=== PATIENT | female | born 1935 | race Caucasian/White ===

== ENCOUNTER 2016-09-28 13:25 | Inpatient (IN) | payer MEDICARE ==
[~2016-09-28] VITALS: Ht 151.1 cm; Wt 72.4 kg
[~2016-09-28 13:25] MED LIST: CARV12.52 PO; FA-8800C2 PO; FURO20 PO; HYDR-3533 PO; KLOR20TA6 PO; WARF2.5T40 PO
[2016-09-28 13:28] VITALS: BP 139/65; PULSE 119; RESP 18; TEMP 98; O2SAT 97
[2016-09-28] MEDS ORDERED: SODIUM CHLORIDE 0.9% FLUSH 5 ML FLUSH IVF PRN (13:45)
--- NOTE | 2016-09-28 13:53 | PD ---
HPI Chief Complaint: Cardiac Complaint Time Seen by Provider: 13:50 Travel History International Travel<30 days: No Contact w/Intl Traveler<30days: No Traveled to known affect area: No History of Present Illness HPI Patient comes in for evaluation of her A. fib after being seen in the urgent care for UTI symptoms. Patient states she went to the urgent care for dysuria that has been ongoing for approximately a week. Patient's been using over-the- counter UTI medications with minimal relief of her symptoms. Patient states she did have a fever 2 days ago but has been fighting a cold as well, which she has been taking antihistamines for symptomatic relief. Patient denies any nausea, vomiting, chest pain, shortness of breath, abdominal pain, headache, dizziness, numbness or tingling anywhere. While patient was at the urgent care she was noted to be in A. fib with RVR and sent to the emergency room for further treatment and evaluation. Patient states she takes her cardiac medication as directed and sees Dr. Durant. Patient reports she always has palpitations. PFSH Past Medical History Hx Anticoagulant Therapy: Yes Arthritis: Yes (GOUT) Asthma: Yes Atrial Fibrillation: Yes Autoimmune Disease: No Blood Disorders: Yes (THALASEMIA) Heart Rhythm Problems: Yes (ADMITTED WITH AFIB) Cancer: No Cardiovascular Problems: Yes (AFIB, CAD) High Cholesterol: No Chest Pain: No Congestive Heart Failure: Yes COPD: No Diabetes: Yes Diminished Hearing: Yes (HEARING AID) Diverticulitis: Yes Endocrine: Yes Gastrointestinal Disorders: No GERD: No Glaucoma: No Genitourinary: Yes Hepatitis: No Hiatal Hernia: Yes Hypertension: Yes Immune Disorder: No Implanted Vascular Access Dvce: No Kidney Stones: No Musculoskeletal: Yes Neurologic: Yes Psychiatric: No Reproductive: No Respiratory: Yes Integumentary: No Immunizations Current: Yes Renal Failure: No Sickle Cell Disease: No Sleep Apnea: No Thyroid Disease: Yes (HYPO) Menopausal: Yes : 7 Para: 4 Miscarriage: 3 Tubal Ligation: Yes Past Surgical History Abdominal Surgery: Yes (MAGUI) Appendectomy: No Cardiac Surgery: No Cholecystectomy: Yes Ear Surgery: No Endocrine Surgery: No Eye Surgery: Yes (IMPLANT LEFT EYE) Gynecologic Surgery: Yes (TUBAL; HYSTERECTOMY) Hysterectomy: Yes (PARTIAL) Neurologic Surgery: No Oral Surgery: Yes (TONSILLECTOMY) Pacemaker: Yes (IMPLANTED 2013) Thoracic Surgery: No Tonsillectomy: Yes Other Surgery: Yes Social History Alcohol Use: No (PT DENIES) Tobacco Use: No Substance Use: No (PT DENIES) Allergies-Medications (Allergen,Severity, Reaction): Coded Allergies: Tetanus Toxoid (Verified Allergy, Severe, 03/25/16) Green Dyes - Various (Verified Allergy, Intermediate, RASH, 03/25/16) Iodinated Contrast Media (Verified Allergy, Intermediate, Hives, 03/25/16) Uncoded Allergies: COAST SOAP (Allergy, Intermediate, RASH, 02/07/10) Reported Meds & Prescriptions Reported Meds & Active Scripts Active Reported Metformin (Metformin HCl) 500 Mg Tab 500 Mg PO DAILY With a meal Review of Systems Except as stated in HPI: all other systems reviewed are Neg Physical Exam Narrative GENERAL: Well-developed, overly nourished, in no acute distress, and non-ill appearing. SKIN: Warm and dry. HEAD: Atraumatic. Normocephalic. EYES: Pupils equal and round. EOMI. No scleral icterus. No injection or drainage. ENT: No nasal bleeding or discharge. Mucous membranes pink and moist. NECK: Trachea midline. Supple. No nuclear rigidity. CARDIOVASCULAR: Irregular rate and rhythm. Murmur appreciated. RESPIRATORY: No accessory muscle use. No respiratory distress. Clear to auscultation. Breath sounds equal bilaterally. GASTROINTESTINAL: Abdomen soft, minimal tenderness suprapubic, nondistended. Hepatic and splenic margins not palpable. Normal bowel sounds 4. No pulsatile mass. MUSCULOSKELETAL: No obvious deformities. No clubbing. No cyanosis. No edema. Full range of motion. NEUROLOGICAL: Awake and alert. No obvious cranial nerve deficits. Motor grossly within normal limits. Normal speech. PSYCHIATRIC: Appropriate mood and affect; insight and judgment normal. Data Data Last Documented VS Vital Signs Date Time Temp Pulse Resp B/P Pulse Ox O2 Delivery O2 Flow Rate FiO2 09/28/16 14:23 16 97 09/28/16 14:23 100 Room Air 09/28/16 13:28 98.0 139/65 Orders Electrocardiogram (09/28/16 13:43) Basic Metabolic Panel (Bmp) (09/28/16 13:42) Complete Blood Count With Diff (09/28/16 13:42) Prothrombin Time / Inr (Pt) (09/28/16 13:42) Act Partial Throm Time (Ptt) (09/28/16 13:42) Ecg Monitoring (09/28/16 13:42) Iv Access Insert/Monitor (09/28/16 13:42) Oximetry (09/28/16 13:42) Sodium Chloride 0.9% Flush (Ns Flush) (09/28/16 13:45) Urinalysis - C+S If Indicated (09/28/16 13:42) Metoprolol Tartrate Inj (Lopressor Inj) (09/28/16 14:15) Diltiazem Inj (Cardizem Inj) (09/28/16 14:30) Urine Culture (09/28/16 15:05) Ceftriaxone Inj (Rocephin Inj) (09/28/16 16:00) Admit Order (Ed Use Only) (09/28/16 16:02) Labs Laboratory Tests Test 09/28/16 09/28/16 13:55 15:05 White Blood Count 9.7 TH/MM3 Red Blood Count 5.60 MIL/MM3 Hemoglobin 11.2 GM/DL Hematocrit 35.2 % Mean Corpuscular Volume 62.8 FL Mean Corpuscular Hemoglobin 20.0 PG Mean Corpuscular Hemoglobin 31.8 % Concent Red Cell Distribution Width 16.5 % Platelet Count 285 TH/MM3 Mean Platelet Volume 8.8 FL Neutrophils (%) (Auto) 65.5 % Lymphocytes (%) (Auto) 17.9 % Monocytes (%) (Auto) 10.6 % Eosinophils (%) (Auto) 5.2 % Basophils (%) (Auto) 0.8 % Neutrophils # (Auto) 6.4 TH/MM3 Lymphocytes # (Auto) 1.7 TH/MM3 Monocytes # (Auto) 1.0 TH/MM3 Eosinophils # (Auto) 0.5 TH/MM3 Basophils # (Auto) 0.1 TH/MM3 CBC Comment AUTO DIFF Differential Comment AUTO DIFF CONFIRMED Prothrombin Time 16.4 SEC Prothromb Time International 1.5 RATIO Ratio Activated Partial 30.8 SEC Thromboplast Time Sodium Level 136 MEQ/L Potassium Level 5.4 MEQ/L Chloride Level 104 MEQ/L Carbon Dioxide Level 22.9 MEQ/L Anion Gap 9 MEQ/L Blood Urea Nitrogen 27 MG/DL Creatinine 1.35 MG/DL Estimat Glomerular Filtration 38 ML/MIN Rate Random Glucose 112 MG/DL Calcium Level 8.6 MG/DL Urine Color YELLOW Urine Turbidity CLOUDY Urine pH 5.5 Urine Specific [place] 1.015 Urine Protein TRACE mg/dL Urine Glucose (UA) NEG mg/dL Urine Ketones NEG mg/dL Urine Occult Blood SMALL Urine Nitrite NEG Urine Bilirubin NEG Urine Urobilinogen LESS THAN 2.0 MG/DL Urine Leukocyte Esterase LARGE Urine RBC 1 /hpf Urine WBC /hpf Urine WBC Clumps MANY Urine Squamous Epithelial 2 /hpf Cells Urine Bacteria MOD /hpf Urine Mucus FEW /lpf Microscopic Urinalysis Comment CULTURE INDICATED MDM Medical Decision Making Medical Screen Exam Complete: Yes Emergency Medical Condition: Yes Interpretation(s) EKG reviewed by Dr. Phelps, shows irregular rhythm with ventricular rate of 126. No STEMI. Differential Diagnosis A. fib with RVR, electrolyte abnormality, UTI, subtherapeutic INR, supratherapeutic INR, other Narrative Course Patient was seen and examined. Initial laboratory, EKG, and radiological studies were ordered. Discussed patient with Dr. Phelps, solitary patient are negative patient himself Cardizem IV and to discuss patient with her scuba diving teacher Dr. Durant pending laboratory results. Discussed all findings and plan care of patient is agreeable for admission. All questions were answered. Physician Communication Physician Communication [address] Durant who recommends having the patient brought admitted to the hospital for monitoring of her A. fib and possible medication adjustment. 1603 discussed patient with medical residents, who are agreeable to admit the patient for Dr. Pineda. Diagnosis Primary Impression: Atrial fibrillation with RVR Additional Impression: UTI (urinary tract infection) Qualified Code: N39.0 - Urinary tract infection without hematuria, site unspecified Condition: Stable Sukhwinder Villegas Sep 28, 2016 13:53
[2016-09-28 14:11] LABS: AUTOMATED NEUTROPHIL # 6.4 TH/MM3 (1.8-7.7); BASOPHIL # 0.1 TH/MM3 (0-0.2); BASOPHIL % 0.8 % (0.0-2.0); EOSINOPHIL # 0.5 TH/MM3 (0-0.4); EOSINOPHIL % 5.2 % (0.0-4.0); HEMATOCRIT 35.2 % (35.0-46.0); LYMPH % 17.9 % (9.0-44.0); LYMPHOCYTE # 1.7 TH/MM3 (1.0-4.8); MEAN CELL VOLUME 62.8 FL (80.0-100.0); MEAN CORPUSCULAR HGB CONC 31.8 % (32.0-36.0); MONO % 10.6 % (0.0-8.0); NEUT % 65.5 % (16.0-70.0); PLATELET COUNT 285 TH/MM3 (150-450); RED CELL DISTRIBUTION WIDTH 16.5 % (11.6-17.2); WHITE BLOOD COUNT 9.7 TH/MM3 (4.0-11.0)
[2016-09-28 14:13] LABS: HEMO FLAGS AUTO DIFF
[2016-09-28] MEDS ORDERED: METOPROLOL TARTRATE 5 MG/5 ML VIAL IV PUSH ONE (14:15)
[2016-09-28 14:23] VITALS: RESP 16; O2SAT 97
[2016-09-28] MEDS ORDERED: DILTIAZEM HCL 25 MG/5 ML VIAL IV ONE (14:30)
[2016-09-28 14:36] LABS: BICARBONATE 22.9 MEQ/L (21.0-32.0); POTASSIUM 5.4 MEQ/L (3.5-5.1)
[2016-09-28 14:43] LABS: SCAN/DIFF AUTO DIFF CONFIRMED
[2016-09-28 15:31] LABS: BACTERIA, URINE MOD /hpf; BLOOD, URINE SMALL (NEG); COMMENT (UR) CULTURE INDICATED; CULTURE IF INDICATED CULTURE INDICATED; GLUCOSE,URINE NEG (NEG); KETONE, URINE NEG (NEG); MUCUS URINE FEW /lpf (OCC); NITRITE,URINE NEG (NEG); PH, URINE 5.5 (5.0-8.5); SQUAMOUS EPITHELIAL CELL URINE 2 /hpf (0-5); URINE COLOR YELLOW (YELLW/STRAW)
[2016-09-28 15:39] LABS: APTT (PATIENT) 30.8 SEC (24.3-30.1); PROTHROMBIN TIME - PATIENT 16.4 SEC (9.8-11.6)
[2016-09-28 15:40] LABS: INTERNATIONAL NORMALIZED RATIO 1.5 RATIO
[2016-09-28] MEDS ORDERED: METF500T PO (15:57)
[2016-09-28] MEDS ORDERED: cefTRIAXone INJ 1,000 MG in SODIUM CHLORIDE 0.9% INJ 100 ML IV ONE (16:00)
[2016-09-28] MEDS ORDERED: SACU1TAB PO (16:06)
[2016-09-28] MEDS ORDERED: FURO1TAB60 PO (16:06)
[2016-09-28] MEDS ORDERED: FOLI800T PO (16:06)
[2016-09-28] MEDS ORDERED: COUM2.5T PO ×2 (16:06)
[2016-09-28] MEDS ORDERED: POTA-163 PO (16:06)
[2016-09-28] MEDS ORDERED: HYDR-3533 PO (16:06)
[2016-09-28] MEDS ORDERED: AFRI0.055 EACH NARE (16:06)
[2016-09-28] MEDS ORDERED: ADVI200C5 PO (16:06)
[2016-09-28] MEDS ORDERED: CARV12.5 PO (16:06)
[2016-09-28] MEDS ORDERED: MEIJ25CA PO (16:06)
--- NOTE | 2016-09-28 16:22 | HHI.HP ---
HPI Service Family Medicine Primary Care Physician Vishal Herman, DO Admission Diagnosis A. fib with RVR, UTI Diagnoses: International Travel<30 Days: No Contact w/Intl Traveler<30days: No Known Affected Area: No History of Present Illness 81 year old female with h/o nonischemic cardiomyopathy last ECHO here 11/24/15 with EF of 25%, a-fib with pacemaker implanted, HTN, DM presented to the ED after visiting an urgent care center earlier today due to symptoms of a UTI. She states she was found to have an elevated heart rate and after discussion with her container packer operator she was advised to present to the ED. She states she had been having dysuria that prompted her to visit the urgent care center but otherwise she is asymptomatic. She denies chest pain or palpitations. Denies headaches, visual changes, shortness of breath. Review of Systems Constitutional: DENIES: Fever, Chills Eyes: DENIES: Blurred vision, Diplopia Respiratory: DENIES: Cough, Shortness of breath Cardiovascular: DENIES: Chest pain, Palpitations Gastrointestinal: DENIES: Diarrhea, Nausea, Vomiting Genitourinary: COMPLAINS OF: Dysuria Past Family Social History Past Medical History Nonischemic cardiomyopathy with EF of 25-30% A-fib with pacemaker implanted HTN DM Asthma Moderate MVR Past Surgical History Cholecystectomy Implant insertion left eye Tubal ligation Hysterectomy Pacemaker insertion 2013 Tonsillectomy Allergies: Coded Allergies: Tetanus Toxoid (Verified Allergy, Severe, 03/25/16) Green Dyes - Various (Verified Allergy, Intermediate, RASH, 03/25/16) Iodinated Contrast Media (Verified Allergy, Intermediate, Hives, 03/25/16) Uncoded Allergies: COAST SOAP (Allergy, Intermediate, RASH, 02/07/10) Family History Reviewed, noncontributory. Social History No alcohol, no tobacco abuse, no illicit drug use. Physical Exam Vital Signs Vital Signs Date Time Temp Pulse Resp B/P Pulse Ox O2 Delivery O2 Flow Rate FiO2 09/28/16 14:23 16 97 09/28/16 14:23 100 16 96 Room Air 09/28/16 13:28 98.0 119 18 139/65 97 Room Air Physical Exam GENERAL: NAD, lying comfortably in bed NEURO: AOx3. Normal speech. manager of enterprise grossly intact. MAEW. SKIN: Warm and dry. No rashes or erythema. HEAD: Normocephalic. Atraumatic. EYES: PERRL. EOMI. No scleral icterus. No injection or drainage. ENT: No nasal drainage. Moist mucous membranes. No oral ulcers or lesions. NECK: Supple. No JVD. CARDIOVASCULAR: Regular rate and rhythm without murmurs, rubs, or gallops. Peripheral pulses 2+. Capillary refill < 2 seconds. RESPIRATORY: Breath sounds clear to auscultation and equal bilaterally, without wheezes, rales, or rhonchi. No accessory muscle use. GASTROINTESTINAL: Abdomen soft, nontender, nondistended, normal BS. No organomegaly or masses. No rebound tenderness. No guarding. MUSCULOSKELETAL: No edema, cyanosis, or clubbing. Normal range of motion. BACK: Nontender without obvious deformity. Laboratory Laboratory Tests Test 09/28/16 09/28/16 13:55 15:05 White Blood Count 9.7 Red Blood Count 5.60 Hemoglobin 11.2 Hematocrit 35.2 Mean Corpuscular Volume 62.8 Mean Corpuscular Hemoglobin 20.0 Mean Corpuscular Hemoglobin 31.8 Concent Red Cell Distribution Width 16.5 Platelet Count 285 Mean Platelet Volume 8.8 Neutrophils (%) (Auto) 65.5 Lymphocytes (%) (Auto) 17.9 Monocytes (%) (Auto) 10.6 Eosinophils (%) (Auto) 5.2 Basophils (%) (Auto) 0.8 Neutrophils # (Auto) 6.4 Lymphocytes # (Auto) 1.7 Monocytes # (Auto) 1.0 Eosinophils # (Auto) 0.5 Basophils # (Auto) 0.1 CBC Comment AUTO DIFF Differential Comment AUTO DIFF CONFIRMED Prothrombin Time 16.4 Prothromb Time International 1.5 Ratio Activated Partial 30.8 Thromboplast Time Sodium Level 136 Potassium Level 5.4 Chloride Level 104 Carbon Dioxide Level 22.9 Anion Gap 9 Blood Urea Nitrogen 27 Creatinine 1.35 Estimat Glomerular Filtration 38 Rate Random Glucose 112 Calcium Level 8.6 Urine Color YELLOW Urine Turbidity CLOUDY Urine pH 5.5 Urine Specific [place] 1.015 Urine Protein TRACE Urine Glucose (UA) NEG Urine Ketones NEG Urine Occult Blood SMALL Urine Nitrite NEG Urine Bilirubin NEG Urine Urobilinogen LESS THAN 2.0 Urine Leukocyte Esterase LARGE Urine RBC 1 Urine WBC Urine WBC Clumps MANY Urine Squamous Epithelial 2 Cells Urine Bacteria MOD Urine Mucus FEW Microscopic Urinalysis Comment CULTURE INDICATED Date/Time Procedure Status Source Growth 09/28/16 15:05 Urine Culture Received Urine Clean Catch Pending Result Diagram: 09/28/16 1355 09/28/16 1355 Assessment and Plan Assessment and Plan 81 year old female with h/o nonischemic cardiomyopathy, a-fib with pacemaker implanted, HTN, DM sent to the ED today due to tachycardia. She will be admitted and managed for the following: Code Status Full code Discussed Condition With Dr. Still wdw Dr. Pineda Problem List: (1) Atrial fibrillation with RVR Status: Acute Plan: Received Cardizem 10 mg IV in ED. Now better rate controlled EKG prior to Cardizem showed irregular rhythm with rate of 126 bpm Cardiology consulted. Patient follows with Dr. Durant - Coreg increased to 12.5 mg po q8h - Subtherapeutic INR on admission, 1.5 - Started Lovenox daily for anticoagulation - Will be reevaluated for an ICD when more medically stable - Warfarin 2.5 mg S////; 5 mg / - Continue Lasix 40 mg po daily - Continuous telemetry (2) UTI (urinary tract infection) Status: Acute Plan: Symptoms c/w UTI UA: neg nitrite, large LE, many WBC clumps Urine culture pending Rocephin 1 gm IV given in ED, will continue with 1 gm IV q24h (3) Type 2 diabetes mellitus Status: Acute Plan: Accuchecks ACHS Continue Metformin 500 mg po daily Low-dose ISS (4) Hypertension Status: Acute Plan: Continue Entresto 1 tab po bid Lasix 40 mg po daily Coreg increased to 12.5 mg po q8h Monitor vitals q4h (5) Nutrition, metabolism, and development symptoms Status: Acute Plan: Fluids: None Electrolytes: K+ 5.4 hemolysis noted, continue to monitor Nutrition: heart healthy DVT PPX: Lovenox and Coumadin Physician Certification 2 Midnight Certification Type: Admission for Inpatient Services Order for Inpatient Services The services are ordered in accordance with Medicare regulations or non- Medicare payer requirements, as applicable. In the case of services not specified as inpatient-only, they are appropriately provided as inpatient services in accordance with the 2-midnight benchmark. Estimated LOS (days): 2 days is the estimated time the patient will need to remain in the hospital, assuming treatment plan goals are met and no additional complications. Post-Hospital Plan: Home Problem Qualifiers (1) UTI (urinary tract infection): Qualified Code: N39.0 - Urinary tract infection without hematuria, site unspecified Everardo Ashford MD R1 Sep 28, 2016 16:22
[2016-09-28] MEDS ORDERED: SODIUM CHLOR 0.9% 1000 ML INJ 1,000 ML IV SCH (17:15)
--- NOTE | 2016-09-28 17:27 | MB ---
cc: RAYMON CRUZ MD DATE OF CONSULTATION 09/28/16 REASON FOR CONSULTATION Atrial fibrillation. HISTORY OF PRESENT ILLNESS Ms. Cinthya Felzi is an 81 year old patient of mine who does have a history of a nonischemic cardiomyopathy, atrial fibrillation and permanent pacemaker implantation. The patient reports that she was at an Urgent Care Center today and found to have an elevated heart rate and requested to go to the emergency room which she did. There she was found to be in atrial fibrillation with RVR. She received some IV Cardizem with improvement in her heart rate. PAST MEDICAL HISTORY 1. Cardiomyopathy with an ejection fraction of 25-30%, moderate to severe mitral regurgitation, 2. Hypertension, 3. Diabetes 4. Asthma. PAST SURGICAL HISTORY 1. Cholecystectomy, 2. Tubal ligation, 3. Hysterectomy and 4. Tonsillectomy. ALLERGIES GREEN DYE CONTRAST FAMILY HISTORY Noncontributory MEDICATIONS Outpatient medications include 1. Coreg 12.5 mg b.i.d. 2. Entresto 24/26 b.i.d. 3. Coumadin as directed 4. Metformin 5. Lasix 40 mg a day 6. Potassium 20 mEq a day 7. Lortab 8. Afrin 9. Folic acid. SOCIAL HISTORY The patient does not drink or smoke. PHYSICAL EXAMINATION VITAL SIGNS: Heart rate 100, respiratory rate 16, blood pressure 139/65. GENERAL: She is a well-appearing elderly female who is in no apparent distress. NECK: Free from JVD. LUNGS: Bilaterally clear to auscultation. CARDIOVASCULAR: She has an irregularly irregular rhythm, no rubs or gallops were appreciated. ABDOMEN: Soft. EXTREMITIES: Free from edema. CARDIOLOGY STUDIES Telemetry does show episodes of atrial fibrillation with rapid ventricular response. LABORATORY DATA Significant for an INR of 1.5. Her creatinine is 1.35. Her hemoglobin is 11.2. IMPRESSION 1. Atrial fibrillation - the patient does have a history of the same. She is subtherapeutic on her INR. She notes that she has been compliant with her medications. I will request daily Lovenox for the anticoagulation. Regarding the RVR, I am going to increase her Coreg to 12.5 q. 8 as I do not think her blood pressure which has been historically low will be able to tolerate the full 25 b.i.d. 2. Cardiomyopathy - the patient and I have recently changed her from lisinopril to Entresto and area going to reevaluate her when she is stable (recovered from her UTI) for an ICD. 3. UTI - this will be managed by the primary team. She does appear borderline dehydrated. We will have to proceed carefully with hydration given her history of cardiomyopathy. Mauricio Carrera/ /4:39 PM /5:16 PM
[2016-09-28] MEDS ORDERED: DEXTROSE 50% IN WATER 50 ML VIAL(D50) IV PUSH PRN (17:30)
[2016-09-28] MEDS ORDERED: GLUCAGON 1 MG/ML VIAL OTHER PRN (17:30)
[2016-09-28] MEDS: ENOXAPARIN SODIUM 60 MG/0.6 ML SYRINGE SQ SCH (18:00)
[2016-09-28] MEDS: WARFARIN SOD 2.5 MG TAB PO SCH (18:00)
[2016-09-28] MEDS ORDERED: SODIUM CHLOR 0.9% 250 ML INJ 250 ML IV ONE (18:00)
[2016-09-28 19:04] VITALS: BP 137/88; PULSE 70; RESP 18; O2SAT 96
--- NOTE | 2016-09-28 19:23 | EKG ---
Date Performed: 09/28/2016 Time Performed: 13:46:31 PTAGE: 81 years EKG: UNCERTAIN IRREGULAR RHYTHM ELECTRONIC VENTRICULAR PACEMAKER -- CONTOUR ANALYSIS BASED ON IN TRINSIC RHYTHM INTRAVENTRICULAR CONDUCTION DELAY ABNORMAL ECG NO SIGNIFICANT CHANGE FROM PRIOR ELECTR OCARDIOGRAM. PREVIOUS TRACING : 11/24/2015 07.54 DOCTOR: Tanvir Boyce Interpretating Date/Time 09/28/2016 19:21:35
[2016-09-28 20:00] VITALS: BP 111/65; PULSE 90; RESP 16; TEMP 97.6; O2SAT 97
[2016-09-28] MEDS: SACUBITRIL/VALSARTAN 24 MG-26 MG TAB PO SCH ×2 (21:00→23:29)
[2016-09-28] MEDS: INSULIN ASPART SUPPLEMENTAL SCALE SQ SCH (21:00)
[2016-09-28] MEDS ORDERED: ACETAMINOPHEN 325 MG TAB PO PRN (23:00)
[2016-09-28] MEDS: CARVEDILOL 12.5 MG TAB PO SCH (23:28)
[2016-09-28] MEDS: FLUTICASONE PROPIONATE 50 MCG/ACT 16 GM NASAL SPRAY NASAL SCH (23:34)
[2016-09-29] VITALS (8 sets, daily range): BP systolic 100–128; BP diastolic 56–72; PULSE 63–88; RESP 16–20; TEMP 97.1–97.8; O2SAT 96–98
[2016-09-29] MEDS: CARVEDILOL 12.5 MG TAB PO SCH ×3 (06:00→20:59)
[2016-09-29] MEDS: INSULIN ASPART SUPPLEMENTAL SCALE SQ SCH ×4 (06:15→20:54)
--- NOTE | 2016-09-29 07:20 | PD.CARD.PN ---
Subjective Subjective Remarks Pt without complaints, wants to go back on lasix Objective Medications Current Medications Medications (Trade) Dose Ordered Sig/Scarlett Route Start Time Stop Time Status Last Admin (NS Flush) 2 ml UNSCH PRN IVF 09/28/16 13:45 (Coreg) 12.5 mg Q8HR PO 09/28/16 22:00 09/28/16 23:28 Enoxaparin Sodium 50 mg 50 mg Q24H SQ 09/28/16 18:00 09/28/16 18:00 (Rocephin Inj/NS Inj) 100 ml @ 200 mls/hr Q24H IV 09/29/16 09:00 (Lasix) 40 mg DAILY PO 09/29/16 09:00 (Glucophage) 500 mg DAILY PO 09/29/16 09:00 (Entresto 24-26 Mg) 1 tab BID PO 09/28/16 21:00 (Coumadin) 2.5 mg SuTuWeFrSa@1600 PO 09/28/16 18:00 09/28/16 18:00 (Coumadin) 5 mg MoTh@1600 PO 09/30/16 16:00 (D50w (Vial) Inj) 25 ml UNSCH PRN IV PUSH 09/28/16 17:30 (Glucagon Inj) 1 mg UNSCH PRN OTHER 09/28/16 17:30 (Tylenol) 650 mg Q6HR PRN PO 09/28/16 23:00 09/28/16 23:43 (Flonase Zhen Spr) 1 spray BID NASAL 09/28/16 23:00 09/28/16 23:34 Vital Signs / I&O Vital Signs Date Time Temp Pulse Resp B/P Pulse Ox O2 Delivery O2 Flow Rate FiO2 09/29/16 04:00 97.1 77 18 100/56 96 09/29/16 00:00 97.8 88 16 108/57 96 09/28/16 20:00 Room Air 09/28/16 20:00 97.6 90 16 111/65 97 09/28/16 19:04 70 18 137/88 96 Room Air 09/28/16 14:23 16 97 09/28/16 14:23 100 16 96 Room Air 09/28/16 13:28 98.0 119 18 139/65 97 Room Air I/O 1/24/17 1/2409/28/16 09/29/16 09/29/16 09/29/16 07:00 15:00 23:00 07:00 15:00 23:00 Intake Total 100 ml 200 ml Balance 100 ml 200 ml Intake Oral 100 ml 200 ml # Voids 2 2 Physical Exam GENERAL: Well developed, well nourished. No acute distress. HEENT: Jugular venous pressure is normal. CHEST: Lungs clear to auscultation bilaterally. Unlabored respiratory effort. CARDIAC: irregular rate and rhythm without S3, S4, or murmur. ABDOMEN: Soft, nontender, no hepatosplenomegaly. Bowel sounds present. EXTREMITIES: No clubbing, cyanosis, or edema. Laboratory Laboratory Tests Test 09/28/16 09/28/16 13:55 15:05 White Blood Count 9.7 TH/MM3 Red Blood Count 5.60 MIL/MM3 Hemoglobin 11.2 GM/DL Hematocrit 35.2 % Mean Corpuscular Volume 62.8 FL Mean Corpuscular Hemoglobin 20.0 PG Mean Corpuscular Hemoglobin 31.8 % Concent Red Cell Distribution Width 16.5 % Platelet Count 285 TH/MM3 Mean Platelet Volume 8.8 FL Neutrophils (%) (Auto) 65.5 % Lymphocytes (%) (Auto) 17.9 % Monocytes (%) (Auto) 10.6 % Eosinophils (%) (Auto) 5.2 % Basophils (%) (Auto) 0.8 % Neutrophils # (Auto) 6.4 TH/MM3 Lymphocytes # (Auto) 1.7 TH/MM3 Monocytes # (Auto) 1.0 TH/MM3 Eosinophils # (Auto) 0.5 TH/MM3 Basophils # (Auto) 0.1 TH/MM3 CBC Comment AUTO DIFF Differential Comment AUTO DIFF CONFIRMED Prothrombin Time 16.4 SEC Prothromb Time International 1.5 RATIO Ratio Activated Partial 30.8 SEC Thromboplast Time Sodium Level 136 MEQ/L Potassium Level 5.4 MEQ/L Chloride Level 104 MEQ/L Carbon Dioxide Level 22.9 MEQ/L Anion Gap 9 MEQ/L Blood Urea Nitrogen 27 MG/DL Creatinine 1.35 MG/DL Estimat Glomerular Filtration 38 ML/MIN Rate Random Glucose 112 MG/DL Calcium Level 8.6 MG/DL B-Type Natriuretic Peptide 67 PG/ML Urine Color YELLOW Urine Turbidity CLOUDY Urine pH 5.5 Urine Specific [place] 1.015 Urine Protein TRACE mg/dL Urine Glucose (UA) NEG mg/dL Urine Ketones NEG mg/dL Urine Occult Blood SMALL Urine Nitrite NEG Urine Bilirubin NEG Urine Urobilinogen LESS THAN 2.0 MG/DL Urine Leukocyte Esterase LARGE Urine RBC 1 /hpf Urine WBC /hpf Urine WBC Clumps MANY Urine Squamous Epithelial 2 /hpf Cells Urine Bacteria MOD /hpf Urine Mucus FEW /lpf Microscopic Urinalysis Comment CULTURE INDICATED Assessment and Plan Problem List: (1) Atrial fibrillation with RVR Assessment and Plan: epidose RVR last night; add digoxin BP too low to go up on coreg right now coumadin and lovenox per primary (2) Cardiomyopathy Assessment and Plan: stable, eval for ICD as OP (3) Hypertension Assessment and Plan: low on present meds (4) Type 2 diabetes mellitus (5) UTI (urinary tract infection) Assessment and Plan: per hospitalist (6) Heart failure (7) Pacemaker Problem Qualifiers (1) UTI (urinary tract infection): Qualified Code: N39.0 - Urinary tract infection without hematuria, site unspecified Norma Durant MD Sep 29, 2016 07:20
[2016-09-29] MEDS ORDERED: DIGOXIN 0.5 MG/2 ML VIAL IV PUSH ONE ×2 (07:30→15:30)
[2016-09-29 08:16] LABS: AUTOMATED NEUTROPHIL # 3.6 TH/MM3 (1.8-7.7); BASOPHIL # 0.1 TH/MM3 (0-0.2); BASOPHIL % 0.8 % (0.0-2.0); EOSINOPHIL # 0.5 TH/MM3 (0-0.4); EOSINOPHIL % 6.6 % (0.0-4.0); HEMATOCRIT 34.5 % (35.0-46.0); LYMPH % 28.9 % (9.0-44.0); MEAN CELL VOLUME 63.1 FL (80.0-100.0); MEAN CORPUSCULAR HEMOGLOBIN 19.9 PG (27.0-34.0); MEAN CORPUSCULAR HGB CONC 31.6 % (32.0-36.0); MONO % 10.9 % (0.0-8.0); NEUT % 52.8 % (16.0-70.0); PLATELET COUNT 250 TH/MM3 (150-450); RED BLOOD COUNT 5.47 MIL/MM3 (4.00-5.30); RED CELL DISTRIBUTION WIDTH 15.7 % (11.6-17.2); WHITE BLOOD COUNT 6.9 TH/MM3 (4.0-11.0)
[2016-09-29 08:19] LABS: HEMO FLAGS AUTO DIFF
[2016-09-29 08:23] LABS: INTERNATIONAL NORMALIZED RATIO 1.5 RATIO; PROTHROMBIN TIME - PATIENT 17.4 SEC (9.8-11.6)
[2016-09-29 08:44] LABS: BICARBONATE 24.8 MEQ/L (21.0-32.0)
[2016-09-29] MEDS ORDERED: POTASSIUM CHLORIDE 20 MEQ CONTROLLED RELEASE TAB PO SCH (09:00)
[2016-09-29 09:06] LABS: OVALOCYTES 1+ (NORMAL); PLATELET ESTIMATE SMEAR NORMAL (NORMAL); PLATELET MORPHOLOGY NORMAL (NORMAL); SCAN/DIFF AUTO DIFF CONFIRMED
[2016-09-29] MEDS: metFORMIN HCL 500 MG TAB PO SCH (09:14)
[2016-09-29] MEDS: cefTRIAXone INJ 1,000 MG in SODIUM CHLORIDE 0.9% INJ 100 ML IV SCH (09:14)
[2016-09-29] MEDS: FUROSEMIDE 40 MG TAB PO SCH (09:14)
[2016-09-29] MEDS: FLUTICASONE PROPIONATE 50 MCG/ACT 16 GM NASAL SPRAY NASAL SCH ×2 (09:16→21:00)
[2016-09-29] MEDS ORDERED: WARFARIN SOD 2.5 MG TAB PO ONE (16:00)
[2016-09-29] MEDS: WARFARIN SOD 2.5 MG TAB PO SCH (16:01)
--- NOTE | 2016-09-29 16:07 | HHI.FPPN ---
Subjective Remarks Attending note: 81-year-old woman admitted through the emergency room with a history consistent with urinary tract infection, major fibrillation with rapid ventricular rate and a nonischemic cardiomyopathy. Please refer resident history and physical for complete discussion of past medical history, social history, family history review of systems. At the time of interview the patient is alert, very pleasant conversation, feeling reasonably comfortable. Does have a history of recurrent urinary tract infections that have been worked up by urology in the past. No specific anatomical abnormalities related. Objective Vitals Vital Signs Date Time Temp Pulse Resp B/P Pulse Ox O2 Delivery O2 Flow Rate FiO2 09/29/16 12:10 96 09/29/16 12:00 97.4 80 20 128/58 98 09/29/16 08:00 97.5 79 16 101/59 97 09/29/16 04:00 97.1 77 18 100/56 96 09/29/16 00:00 97.8 88 16 108/57 96 09/28/16 20:00 Room Air 09/28/16 20:00 97.6 90 16 111/65 97 09/28/16 19:04 70 18 137/88 96 Room Air I/O 09/28/16 09/28/16 09/28/16 09/29/16 09/29/16 09/29/16 07:00 15:00 23:00 07:00 15:00 23:00 Intake Total 100 ml 200 ml 480 ml Balance 100 ml 200 ml 480 ml Intake Oral 100 ml 200 ml 480 ml # Voids 2 2 6 # Bowel Movements 1 Result Diagram: 09/29/16 0755 09/29/16 0755 Objective Remarks Vital signs noted. Gen. appearance: Delightful 81-year-old woman alert, cooperative, very pleasant conversation in no acute distress. Lungs: Clear to auscultation. Cardiac: S1-S2, irregular rhythm, no S3 or significant murmurs appreciated the time of auscultation. Abdomen: Soft and benign, no tenderness, no masses or organomegaly. Extremities: Feet are warm and dry, intact pedal pulses. A/P Assessment and Plan Clinical assessment 81-year-old woman admitted with major fibrillation with rapid ventricular rate and a nonischemic cardiomyopathy and associated urinary tract infection. Treatment is to control ventricular rate, maintain anticoagulation, treat urinary tract infection. Patient seen and examined. Case reviewed and discussed with resident team. Agree with plan of care as discussed with me and documented in the resident note. Problem List: (1) Atrial fibrillation with RVR Status: Acute Plan: Received Cardizem 10 mg IV in ED. Now better rate controlled EKG prior to Cardizem showed irregular rhythm with rate of 126 bpm Cardiology consulted. Patient follows with Dr. Durant - Coreg increased to 12.5 mg po q8h - Subtherapeutic INR on admission, 1.5 - Started Lovenox daily for anticoagulation - Will be reevaluated for an ICD when more medically stable - Warfarin 2.5 mg S////; 5 mg / - Continue Lasix 40 mg po daily - Continuous telemetry (2) UTI (urinary tract infection) Status: Acute Plan: Symptoms c/w UTI UA: neg nitrite, large LE, many WBC clumps Urine culture pending Rocephin 1 gm IV given in ED, will continue with 1 gm IV q24h (3) Type 2 diabetes mellitus Status: Acute Plan: Accuchecks ACHS Continue Metformin 500 mg po daily Low-dose ISS (4) Hypertension Status: Acute Plan: Continue Entresto 1 tab po bid Lasix 40 mg po daily Coreg increased to 12.5 mg po q8h Monitor vitals q4h (5) Nutrition, metabolism, and development symptoms Status: Acute Plan: Fluids: None Electrolytes: K+ 5.4 hemolysis noted, continue to monitor Nutrition: heart healthy DVT PPX: Lovenox and Coumadin Problem Qualifiers (1) UTI (urinary tract infection): Qualified Code: N39.0 - Urinary tract infection without hematuria, site unspecified Moises Pineda MD Sep 29, 2016 16:06
--- NOTE | 2016-09-29 17:15 | HHI.FPPN ---
Subjective Remarks No events overnight. Afebrile, vitals are stable. She denies chest pain or palpitations. States her dysuria is slightly improved. States she had some trouble sleeping. Denies any fevers, chills, shortness of breath. Objective Vitals Vital Signs Date Time Temp Pulse Resp B/P Pulse Ox O2 Delivery O2 Flow Rate FiO2 09/29/16 16:00 97.5 74 20 113/70 98 09/29/16 12:10 96 09/29/16 12:00 97.4 80 20 128/58 98 09/29/16 08:00 97.5 79 16 101/59 97 09/29/16 04:00 97.1 77 18 100/56 96 09/29/16 00:00 97.8 88 16 108/57 96 09/28/16 20:00 Room Air 09/28/16 20:00 97.6 90 16 111/65 97 09/28/16 19:04 70 18 137/88 96 Room Air I/O 09/28/16 09/28/16 09/28/16 09/29/16 09/29/16 09/29/16 07:00 15:00 23:00 07:00 15:00 23:00 Intake Total 100 ml 200 ml 480 ml Balance 100 ml 200 ml 480 ml Intake Oral 100 ml 200 ml 480 ml # Voids 2 2 6 # Bowel Movements 1 Result Diagram: 09/29/16 0755 09/29/16 0755 Objective Remarks GENERAL: NAD, lying comfortably in bed NEURO: AOx3. Normal speech. vice president tax grossly intact. MAEW. SKIN: Warm and dry. No rashes or erythema. HEAD: Normocephalic. Atraumatic. EYES: EOMI. No scleral icterus. No injection or drainage. ENT: No nasal drainage. Moist mucous membranes. No oral ulcers or lesions. NECK: Supple. No JVD. CARDIOVASCULAR: Regular rate and rhythm without murmurs, rubs, or gallops. Peripheral pulses 2+. Capillary refill < 2 seconds. RESPIRATORY: Breath sounds clear to auscultation and equal bilaterally, without wheezes, rales, or rhonchi. No accessory muscle use. GASTROINTESTINAL: Abdomen soft, nontender, nondistended, normal BS. No rebound tenderness. No guarding. MUSCULOSKELETAL: No edema, cyanosis, or clubbing. Normal range of motion. BACK: Nontender without obvious deformity. A/P Assessment and Plan 81 year old female with h/o nonischemic cardiomyopathy, a-fib with pacemaker implanted, HTN, DM admitted due to tachycardia. Discharge Planning Anticipating discharge home tomorrow. Problem List: (1) Atrial fibrillation with RVR Status: Acute Plan: Received Cardizem 10 mg IV in ED. Now better rate controlled EKG prior to Cardizem showed irregular rhythm with rate of 126 bpm - Cardiology consulted. Patient follows with Dr. Durant - BP too low to increased Coreg. Keep Coreg at dose of 12.5 mg po q8h - Subtherapeutic INR on admission, remains at 1.5 today - Lovenox daily for anticoagulation - Warfarin 2.5 mg ////; 5 mg / - Will be reevaluated for an ICD when more medically stable - Continue Lasix 40 mg po daily, monitor blood pressures closely - Continuous telemetry (2) UTI (urinary tract infection) Status: Acute Plan: Symptoms c/w UTI UA: neg nitrite, large LE, many WBC clumps Urine culture growing > 100,000 cfus GNR Rocephin 1 gm IV q24h (3) Type 2 diabetes mellitus Status: Acute Plan: Accuchecks ACHS Continue Metformin 500 mg po daily Low-dose ISS (4) Hypertension Status: Acute Plan: Continue Entresto 1 tab po bid Lasix 40 mg po daily Coreg 12.5 mg po q8h Monitor vitals q4h (5) Nutrition, metabolism, and development symptoms Status: Acute Plan: Fluids: None Electrolytes: K+ 4.0 today, continued to monitor Nutrition: heart healthy DVT PPX: Lovenox and Coumadin Problem Qualifiers (1) UTI (urinary tract infection): Qualified Code: N39.0 - Urinary tract infection without hematuria, site unspecified Everardo Ashford MD R1 Sep 29, 2016 17:15
[2016-09-29] MEDS: ENOXAPARIN SODIUM 60 MG/0.6 ML SYRINGE SQ SCH (18:31)
[2016-09-29] MEDS: SACUBITRIL/VALSARTAN 24 MG-26 MG TAB PO SCH (21:00)
[2016-09-29] MEDS ORDERED: ZOLPIDEM TARTRATE 5 MG TAB PO SCH (21:00)
[2016-09-30] VITALS: BP 134/60; PULSE 92; RESP 18; TEMP 97.7; O2SAT 95
[2016-09-30 04:00] VITALS: BP 135/68; PULSE 73; RESP 18; TEMP 97.7; O2SAT 97
[2016-09-30] MEDS: INSULIN ASPART SUPPLEMENTAL SCALE SQ SCH ×2 (05:37→11:00)
[2016-09-30] MEDS: CARVEDILOL 12.5 MG TAB PO SCH (05:37)
[2016-09-30 06:45] LABS: INTERNATIONAL NORMALIZED RATIO 1.6 RATIO; PROTHROMBIN TIME - PATIENT 18.5 SEC (9.8-11.6)
[2016-09-30 06:58] LABS: AUTOMATED NEUTROPHIL # 4.1 TH/MM3 (1.8-7.7); BASOPHIL # 0.1 TH/MM3 (0-0.2); BASOPHIL % 0.9 % (0.0-2.0); EOSINOPHIL # 0.5 TH/MM3 (0-0.4); EOSINOPHIL % 6.6 % (0.0-4.0); HEMATOCRIT 35.5 % (35.0-46.0); LYMPH % 24.6 % (9.0-44.0); LYMPHOCYTE # 1.8 TH/MM3 (1.0-4.8); MEAN CELL VOLUME 62.6 FL (80.0-100.0); MEAN CORPUSCULAR HEMOGLOBIN 19.9 PG (27.0-34.0); MEAN CORPUSCULAR HGB CONC 31.7 % (32.0-36.0); MONO % 10.7 % (0.0-8.0); NEUT % 57.2 % (16.0-70.0); PLATELET COUNT 251 TH/MM3 (150-450); RED BLOOD COUNT 5.68 MIL/MM3 (4.00-5.30); RED CELL DISTRIBUTION WIDTH 15.6 % (11.6-17.2); WHITE BLOOD COUNT 7.3 TH/MM3 (4.0-11.0)
[2016-09-30 07:05] LABS: HEMO FLAGS AUTO DIFF
[2016-09-30 07:06] LABS: BICARBONATE 26.8 MEQ/L (21.0-32.0); POTASSIUM 4.4 MEQ/L (3.5-5.1)
--- NOTE | 2016-09-30 07:58 | PD.CARD.PN ---
Subjective Subjective Remarks Feeling better Objective Medications Current Medications Medications (Trade) Dose Ordered Sig/Scarlett Route Start Time Stop Time Status Last Admin (NS Flush) 2 ml UNSCH PRN IVF 09/28/16 13:45 (Coreg) 12.5 mg Q8HR PO 09/28/16 22:00 09/30/16 05:37 Enoxaparin Sodium 50 mg 50 mg Q24H SQ 09/28/16 18:00 09/29/16 18:31 (Rocephin Inj/NS Inj) 100 ml @ 200 mls/hr Q24H IV 09/29/16 09:00 09/29/16 09:14 (Lasix) 40 mg DAILY PO 09/29/16 09:00 09/29/16 09:14 (Glucophage) 500 mg DAILY PO 09/29/16 09:00 09/29/16 09:14 (Entresto 24-26 Mg) 1 tab BID PO 09/28/16 21:00 09/29/16 21:00 (Coumadin) 2.5 mg SuTuWeFrSa@1600 PO 09/28/16 18:00 09/29/16 16:01 (Coumadin) 5 mg MoTh@1600 PO 09/30/16 16:00 (D50w (Vial) Inj) 25 ml UNSCH PRN IV PUSH 09/28/16 17:30 (Glucagon Inj) 1 mg UNSCH PRN OTHER 09/28/16 17:30 (Tylenol) 650 mg Q6HR PRN PO 09/28/16 23:00 09/28/16 23:43 (Flonase Zhen Spr) 1 spray BID NASAL 09/28/16 23:00 09/29/16 21:00 (Lanoxin) 0.125 mg DAILY PO 09/30/16 09:00 (Ambien) 5 mg HS PO 09/29/16 21:00 09/29/16 21:00 Vital Signs / I&O Vital Signs Date Time Temp Pulse Resp B/P Pulse Ox O2 Delivery O2 Flow Rate FiO2 09/30/16 04:00 97.7 73 18 135/68 97 09/30/16 00:00 97.7 92 18 134/60 95 09/29/16 21:19 97 21 09/29/16 20:55 97.8 63 18 105/72 98 09/29/16 20:00 Room Air 09/29/16 16:00 97.5 74 20 113/70 98 09/29/16 12:10 96 09/29/16 12:00 97.4 80 20 128/58 98 09/29/16 08:00 97.5 79 16 101/59 97 09/29/16 08:00 96 Room Air I/O 09/29/16 09/29/16 09/29/16 09/30/16 09/30/16 09/30/16 07:00 15:00 23:00 07:00 15:00 23:00 Intake Total 200 ml 480 ml 240 ml 240 ml Balance 200 ml 480 ml 240 ml 240 ml Intake Oral 200 ml 480 ml 240 ml 240 ml # Voids 2 6 3 2 # Bowel Movements 1 0 0 Physical Exam GENERAL: Well developed, well nourished. No acute distress. HEENT: Jugular venous pressure is normal. CHEST: Lungs clear to auscultation bilaterally. Unlabored respiratory effort. CARDIAC: irregular rate and rhythm without S3, S4, or murmur. ABDOMEN: Soft, nontender, no hepatosplenomegaly. Bowel sounds present. EXTREMITIES: No clubbing, cyanosis, or edema. Laboratory Laboratory Tests Test 09/30/16 05:39 White Blood Count 7.3 TH/MM3 Red Blood Count 5.68 MIL/MM3 Hemoglobin 11.3 GM/DL Hematocrit 35.5 % Mean Corpuscular Volume 62.6 FL Mean Corpuscular Hemoglobin 19.9 PG Mean Corpuscular Hemoglobin 31.7 % Concent Red Cell Distribution Width 15.6 % Platelet Count 251 TH/MM3 Mean Platelet Volume 9.0 FL Neutrophils (%) (Auto) 57.2 % Lymphocytes (%) (Auto) 24.6 % Monocytes (%) (Auto) 10.7 % Eosinophils (%) (Auto) 6.6 % Basophils (%) (Auto) 0.9 % Neutrophils # (Auto) 4.1 TH/MM3 Lymphocytes # (Auto) 1.8 TH/MM3 Monocytes # (Auto) 0.8 TH/MM3 Eosinophils # (Auto) 0.5 TH/MM3 Basophils # (Auto) 0.1 TH/MM3 CBC Comment AUTO DIFF Prothrombin Time 18.5 SEC Prothromb Time International 1.6 RATIO Ratio Sodium Level 140 MEQ/L Potassium Level 4.4 MEQ/L Chloride Level 106 MEQ/L Carbon Dioxide Level 26.8 MEQ/L Anion Gap 7 MEQ/L Blood Urea Nitrogen 19 MG/DL Creatinine 1.02 MG/DL Estimat Glomerular Filtration 52 ML/MIN Rate Random Glucose 96 MG/DL Calcium Level 8.7 MG/DL Assessment and Plan Problem List: (1) Atrial fibrillation with RVR Assessment and Plan: overall good rate control but elevations with activities => increase coreg 25 bid, continue dig ==>reasonable for d/c and follow up next Tuesday (2) Cardiomyopathy Assessment and Plan: stable, eval for ICD as OP (3) Hypertension (4) Type 2 diabetes mellitus (5) UTI (urinary tract infection) (6) Heart failure (7) Pacemaker Problem Qualifiers (1) UTI (urinary tract infection): Qualified Code: N39.0 - Urinary tract infection without hematuria, site unspecified Norma Durant MD Sep 30, 2016 07:58
[2016-09-30 08:00] VITALS: BP 121/59; PULSE 91; RESP 18; TEMP 97.8; O2SAT 96
[2016-09-30] MEDS: FUROSEMIDE 40 MG TAB PO SCH (08:09)
[2016-09-30] MEDS: cefTRIAXone INJ 1,000 MG in SODIUM CHLORIDE 0.9% INJ 100 ML IV SCH (08:09)
[2016-09-30] MEDS: metFORMIN HCL 500 MG TAB PO SCH (08:09)
[2016-09-30] MEDS: SACUBITRIL/VALSARTAN 24 MG-26 MG TAB PO SCH (08:09)
[2016-09-30] MEDS: FLUTICASONE PROPIONATE 50 MCG/ACT 16 GM NASAL SPRAY NASAL SCH (08:10)
[2016-09-30 08:27] LABS: OVALOCYTES 1+ (NORMAL); SCAN/DIFF AUTO DIFF CONFIRMED
[2016-09-30] MEDS ORDERED: DIGOXIN 0.125 MG TAB PO SCH (09:00)
[2016-09-30] MEDS ORDERED: CARVEDILOL 12.5 MG TAB PO SCH (09:00)
[2016-09-30] MEDS ORDERED: DIGO0.12 PO (12:27)
[2016-09-30] MEDS ORDERED: FLUT50SP NASAL (12:27)
[2016-09-30] MEDS ORDERED: CEPH-460 PO (12:27)
--- NOTE | 2016-09-30 12:27 | HHI.DCPOC ---
Discharge Care Plan Diagnosis: (1) UTI (urinary tract infection) (2) Atrial fibrillation with RVR Goals to Promote Your Health * To prevent worsening of your condition and complications * To maintain your health at the optimal level Directions to Meet Your Goals Take your medications as prescribed Follow your dietary instruction Follow activity as directed Keep your appointments as scheduled Take your immunizations and boosters as scheduled If your symptoms worsen call your PCP, if no PCP go to Urgent Care Center or Emergency Room Smoking is Dangerous to Your Health. Avoid second hand smoke Call the 24-hour hour crisis hotline for domestic abuse at Shea Go MD R2 Sep 30, 2016 12:27
--- NOTE | 2016-09-30 12:37 | HHI.FPPN ---
Subjective Remarks No acute events overnight. VS unremarkable. This morning patient states that she feels well and is ready to go. Denies chest pain or SOB. No complaints otherwise. Objective Vitals Vital Signs Date Time Temp Pulse Resp B/P Pulse Ox O2 Delivery O2 Flow Rate FiO2 09/30/16 08:00 96 Room Air 21 09/30/16 04:00 97.7 73 18 135/68 97 09/30/16 00:00 97.7 92 18 134/60 95 09/29/16 21:19 97 21 09/29/16 20:55 97.8 63 18 105/72 98 09/29/16 20:00 Room Air 09/29/16 16:00 97.5 74 20 113/70 98 I/O 09/29/16 09/29/16 09/29/16 09/30/16 09/30/16 09/30/16 07:00 15:00 23:00 07:00 15:00 23:00 Intake Total 200 ml 480 ml 240 ml 240 ml Balance 200 ml 480 ml 240 ml 240 ml Intake Oral 200 ml 480 ml 240 ml 240 ml # Voids 2 6 3 2 # Bowel Movements 1 0 0 Result Diagram: 09/30/16 0539 09/30/16 0539 Objective Remarks GENERAL: NAD, lying comfortably in bed CARDIOVASCULAR: Regular rate and rhythm without murmurs, rubs, or gallops. RESPIRATORY: Breath sounds clear to auscultation and equal bilaterally, without wheezes, rales, or rhonchi. No accessory muscle use. MUSCULOSKELETAL: No edema, cyanosis, or clubbing. Normal range of motion. No calf tenderness. A/P Assessment and Plan 81 year old female with h/o nonischemic cardiomyopathy, a-fib with pacemaker implanted, HTN, DM admitted due to tachycardia. Discharge Planning Anticipating today dw Dr. Pineda Problem List: (1) Atrial fibrillation with RVR Status: Resolved Plan: Received Cardizem 10 mg IV in ED. Rate has been controlled since admission. EKG prior to Cardizem showed irregular rhythm with rate of 126 bpm - Cardiology consulted. Patient follows with Dr. Durant. Appreciate recommendations * digoxin 0.125 daily * increase Coreg back to 25mg BID * follow up on Tuesday * ok to discharge - Subtherapeutic INR on admission, will give an additional Coumadin dose of 2.5mg today prior to discharge. - Continue home anticoagulation medications Warfarin 2.5 mg S////; 5 mg / - Continue Lasix 40 mg po daily, monitor blood pressures closely - Continuous telemetry (2) UTI (urinary tract infection) Status: Acute Plan: Symptoms c/w UTI UA: neg nitrite, large LE, many WBC clumps Urine culture growing > 100,000 cfus GNR Rocephin 1 gm IV q24h (3) Type 2 diabetes mellitus Status: Acute Plan: Accuchecks ACHS Continue Metformin 500 mg po daily Low-dose ISS (4) Hypertension Status: Acute Plan: Continue Entresto 1 tab po bid Lasix 40 mg po daily Coreg 25MG BID Monitor vitals q4h (5) Nutrition, metabolism, and development symptoms Status: Acute Plan: Fluids: None Electrolytes: continued to monitor Nutrition: heart healthy DVT PPX: Lovenox and Coumadin Problem Qualifiers (1) UTI (urinary tract infection): Qualified Code: N39.0 - Urinary tract infection without hematuria, site unspecified Shea Go MD R2 Sep 30, 2016 12:37
[2016-09-30] MEDS ORDERED: WARFARIN SOD 2.5 MG TAB PO ONE (13:45)
[2016-09-30] MEDS ORDERED: WARFARIN SOD 2.5 MG TAB PO SCH (16:00)
--- NOTE | 2016-09-30 18:54 | HHI.DS ---
Discharge Summary Admission Date Sep 28, 2016 at 16:05 Discharge Date: Sep 30, 2016 Admitting Diagnosis A. fib with RVR, UTI (1) Atrial fibrillation with RVR Plan: Received Cardizem 10 mg IV in ED. Rate has been controlled since admission. EKG prior to Cardizem showed irregular rhythm with rate of 126 bpm - Cardiology consulted. Patient follows with Dr. Durant. Appreciate recommendations * digoxin 0.125 daily * increase Coreg back to 25mg BID * follow up on Tuesday * ok to discharge - Subtherapeutic INR on admission, will give an additional Coumadin dose of 2.5mg today prior to discharge. - Continue home anticoagulation medications Warfarin 2.5 mg S////; 5 mg / - Continue Lasix 40 mg po daily, monitor blood pressures closely - Continuous telemetry (2) UTI (urinary tract infection) Plan: Symptoms c/w UTI UA: neg nitrite, large LE, many WBC clumps Urine culture growing > 100,000 cfus GNR Rocephin 1 gm IV q24h (3) Type 2 diabetes mellitus Plan: Accuchecks ACHS Continue Metformin 500 mg po daily Low-dose ISS (4) Hypertension Plan: Continue Entresto 1 tab po bid Lasix 40 mg po daily Coreg 25MG BID Monitor vitals q4h (5) Nutrition, metabolism, and development symptoms Plan: Fluids: None Electrolytes: continued to monitor Nutrition: heart healthy DVT PPX: Lovenox and Coumadin Consultants Cardiology Brief History 81 year old female with h/o nonischemic cardiomyopathy last ECHO here 11/24/15 with EF of 25%, a-fib with pacemaker implanted, HTN, DM presented to the ED after visiting an urgent care center earlier today due to symptoms of a UTI. She states she was found to have an elevated heart rate and after discussion with her clinical staff educator she was advised to present to the ED. She states she had been having dysuria that prompted her to visit the urgent care center but otherwise she is asymptomatic. She denies chest pain or palpitations. Denies headaches, visual changes, shortness of breath. CBC/BMP: 09/30/16 0539 09/30/16 0539 Significant Findings Laboratory Tests Test 09/28/16 09/28/16 09/29/16 09/30/16 13:55 15:05 07:55 05:39 Prothrombin Time 16.4 SEC 17.4 SEC 18.5 SEC (9.8-11.6) (9.8-11.6) (9.8-11.6) Activated Partial 30.8 SEC Thromboplast Time (24.3-30.1) Potassium Level 5.4 MEQ/L (3.5-5.1) Blood Urea Nitrogen 27 MG/DL (7-18) 20 MG/DL (7-18) 19 MG/DL (7-18) Creatinine 1.35 MG/DL 1.10 MG/DL 1.02 MG/DL (0.50-1.00) (0.50-1.00) (0.50-1.00) Estimat Glomerular Filtration 38 ML/MIN (>89) 48 ML/MIN (>89) 52 ML/MIN (>89) Rate Random Glucose 112 MG/DL (74-106) Red Blood Count 5.60 MIL/MM3 5.47 MIL/MM3 5.68 MIL/MM3 (4.00-5.30) (4.00-5.30) (4.00-5.30) Hemoglobin 11.2 GM/DL 10.9 GM/DL 11.3 GM/DL (11.6-15.3) (11.6-15.3) (11.6-15.3) Mean Corpuscular Volume 62.8 FL 63.1 FL 62.6 FL (80.0-100.0) (80.0-100.0) (80.0-100.0) Mean Corpuscular Hemoglobin 20.0 PG 19.9 PG 19.9 PG (27.0-34.0) (27.0-34.0) (27.0-34.0) Mean Corpuscular Hemoglobin 31.8 % 31.6 % 31.7 % Concent (32.0-36.0) (32.0-36.0) (32.0-36.0) Monocytes (%) (Auto) 10.6 % 10.9 % 10.7 % (0.0-8.0) (0.0-8.0) (0.0-8.0) Eosinophils (%) (Auto) 5.2 % (0.0-4.0) 6.6 % (0.0-4.0) 6.6 % (0.0-4.0) Monocytes # (Auto) 1.0 TH/MM3 (0-0.9) Eosinophils # (Auto) 0.5 TH/MM3 0.5 TH/MM3 0.5 TH/MM3 (0-0.4) (0-0.4) (0-0.4) Urine Turbidity CLOUDY (CLEAR) Urine Occult Blood SMALL (NEG) Urine Leukocyte Esterase LARGE (NEG) Urine WBC Clumps MANY (NONE) Urine Bacteria MOD /hpf (NONE) Urine Mucus FEW /lpf (OCC) Hematocrit 34.5 % (35.0-46.0) Ovalocytes 1+ (NORMAL) 1+ (NORMAL) PE at Discharge GENERAL: NAD, lying comfortably in bed CARDIOVASCULAR: Regular rate and rhythm without murmurs, rubs, or gallops. RESPIRATORY: Breath sounds clear to auscultation and equal bilaterally, without wheezes, rales, or rhonchi. No accessory muscle use. MUSCULOSKELETAL: No edema, cyanosis, or clubbing. Normal range of motion. No calf tenderness. Hospital Course Patient is an 81-year-old female who was admitted for A. fib with RVR and found to have a UTI. She was rate controlled with Cardizem IV 1 and then rate controlled with PO medications. Patient was also started on digoxin to help control rate but to limit effects on BP. Patient was also found to have subtherapeutic INR so warfarin was increased slightly while in the hospital. UTI was treated with Rocephin. Patient was then discharged in stable condition. Pt Condition on Discharge: Stable Discharge Disposition: Discharge Home Discharge Instructions DIET: Follow Instructions for: Heart Healthy Diet Activities you can perform: Regular-No Restrictions Follow up Referrals: Cardiology - 10/06/16 with Norma Durant MD PCP Follow-up - 1 Week New Medications: Cephalexin (Keflex) 500 Mg Cap 500 MG PO BID PRN Infection #14 Ref 0 CAP Digoxin (Digoxin) 0.125 Mg Tab 0.125 MG PO DAILY #30 TAB Fluticasone Nasal [place] (Fluticasone Nasal [place]) 50 Mcg/Act Naspr 1 SPRAY NASAL BID #1 BOTTLE Continued Medications: Carvedilol (Coreg) 12.5 Mg Tab 25 MG PO BID #60 Ref 0 TAB Diphenhydramine HCl (Antihistamine Allergy) 25 Mg Cap 1 CAP PO Q12HR PRN ALLERGIES Folic Acid (Folic Acid) 800 Mcg Tab 800 MCG PO HS Nutritional Supplement Ref 0 TAB Furosemide (Lasix) 40 Mg Tab 40 MG PO DAILY #30 Ref 0 TAB Hydrocodone-Acetaminophen (Lortab) 5-325 Mg Tab 1 TAB PO Q6H PRN PAIN Ref 0 TAB Ibuprofen (Advil) 200 Mg Cap 400 MG PO Q4H PRN Ref 0 CAP Metformin (Metformin) 500 Mg Tab 500 MG PO DAILY With a meal Blood Sugar Management #30 Ref 0 TAB Potassium Chloride ER (Potassium Chloride ER) 20 Meq Tab 20 MEQ PO DAILY Electrolyte Replacement #30 Ref 0 TAB Sacubitril-Valsartan (Entresto) 24-26 Mg Tab 1 TAB PO BID Heart Failure #30 Ref 0 TAB Warfarin (Coumadin) 2.5 Mg Tab 2.5 MG PO SUTUWEFRSA Take 1 tablet (2.5mg) on Tuesday,Tuesday,Tuesday,Tuesday and Tuesday Prevent Blood Clot #30 Ref 0 TAB Warfarin (Coumadin) 2.5 Mg Tab 5 MG PO MOTH Take 2 tablets (5mg) on Tuesday and Prevent Blood Clot #30 Ref 0 TAB Discontinued Medications: Oxymetazoline HCl (Afrin) 0.05 % Spr 2-3 SPRAY EACH NARE Q12HR PRN NASAL CONGESTION Shea Go MD R2 Sep 30, 2016 18:54
== END 2016-09-30 15:33 | disposition home or self-care (01) | DRG 309 ==
LOC: NEPE 13:25 → NEDA 16:05 → N04B 19:51
PROVIDERS: ADMIT Family Medicine; ATTEND Family Medicine
DX: I48.91 Unspecified atrial fibrillation (principal); N39.0 Urinary tract infection, site not specified; I42.9 Cardiomyopathy, unspecified; I50.9 Heart failure, unspecified; E11.9 Type 2 diabetes mellitus without complications; I10 Essential (primary) hypertension; B96.1 Klebsiella pneumoniae [K. pneumoniae] as the cause of diseases classified elsewhere; I34.0 Nonrheumatic mitral (valve) insufficiency; J45.909 Unspecified asthma, uncomplicated; E86.0 Dehydration; M10.9 Gout, unspecified; I25.10 Atherosclerotic heart disease of native coronary artery without angina pectoris; H91.90 Unspecified hearing loss, unspecified ear; E03.9 Hypothyroidism, unspecified; Z79.84 Long term (current) use of oral hypoglycemic drugs; Z88.7 Allergy status to serum and vaccine; Z91.041 Radiographic dye allergy status; Z95.0 Presence of cardiac pacemaker
CPT/HCPCS: 80048; 81001; 82948; 83880; 85025; 85610; 85730; 87077; 87086; 87186; 93005; 96374; 96375; J0696; J1160; J1650; J7050

== ENCOUNTER 2017-07-20 12:49 | Day surgery (SDC) | payer MEDICARE ==
[~2017-07-20] VITALS: Ht 152.4 cm; Wt 73.2 kg
[~2017-07-20 12:49] MED LIST changes: +ADVI200C5 PO; +CARV12.5 PO; -CARV12.52 PO; +CEPH-460 PO; +COUM2.5T PO; +DIGO0.12 PO; -FA-8800C2 PO; +FLUT50SP NASAL; +FOLI800T PO; +FURO1TAB60 PO; -FURO20 PO; -KLOR20TA6 PO; +MEIJ25CA PO; +METF500T PO; +POTA-163 PO; +SACU1TAB PO; -WARF2.5T40 PO
[2017-07-20] MEDS ORDERED: CHLORHEXIDINE GLUCONATE 2 % 1 PACK (2 CLOTHS) TOPICAL SCH (13:30)
[2017-07-20] MEDS ORDERED: NS 1000 ML IV SCH (13:30)
[2017-07-20] MEDS ORDERED: METOPROLOL TARTRATE 25 MG TAB PO PRN (13:30)
[2017-07-20] MEDS ORDERED: LORazepam 1 MG TAB SL SCH (13:30)
[2017-07-20] MEDS ORDERED: SODIUM CHLORID 0.9% 500 ML IV PRN (13:30)
[2017-07-20] MEDS ORDERED: LACTATED RINGER'S 1000 ML IV PRN (13:30)
[2017-07-20] MEDS ORDERED: VANCOMYCIN 1000 MG/NS 250 ML IV SCH ×2 (13:30)
[2017-07-20] MEDS ORDERED: MUPIROCIN 2% OINT 1 APPLIC/GM SYR NASAL SCH (13:30)
[2017-07-20] MEDS ORDERED: INSULIN HUMAN REGULAR 1,000 UNITS/10 ML VIAL SQ PRN (13:30)
[2017-07-20] MEDS ORDERED: ceFAZolin 2 GM PREMIX 50 ML IV SCH (13:30)
[2017-07-20] MEDS ORDERED: VITA100T65 PO (13:40)
[2017-07-20] MEDS ORDERED: MELA1TAB18 PO (13:40)
[2017-07-20] MEDS ORDERED: calcium PO (13:40)
[2017-07-20] MEDS ORDERED: CHOL5000 PO (13:40)
[2017-07-20] MEDS ORDERED: OMEG1CAP53 PO (13:40)
[2017-07-20] MEDS ORDERED: MULT-65 PO (13:40)
[2017-07-20 13:41] VITALS: BP 93/52; PULSE 108; RESP 16; TEMP 97.9; O2SAT 99
[2017-07-20 14:05] LABS: AUTOMATED NEUTROPHIL # 4.1 TH/MM3 (1.8-7.7); BASOPHIL # 0.1 TH/MM3 (0-0.2); EOSINOPHIL # 0.4 TH/MM3 (0-0.4); EOSINOPHIL % 5.2 % (0.0-4.0); HEMATOCRIT 34.3 % (35.0-46.0); HEMO FLAGS DIFF FINAL; LYMPH % 23.3 % (9.0-44.0); LYMPHOCYTE # 1.6 TH/MM3 (1.0-4.8); MEAN CORPUSCULAR HEMOGLOBIN 19.5 PG (27.0-34.0); MONO % 11.1 % (0.0-8.0); NEUT % 59.4 % (16.0-70.0); PLATELET COUNT 315 TH/MM3 (150-450); RED BLOOD COUNT 5.44 MIL/MM3 (4.00-5.30); RED CELL DISTRIBUTION WIDTH 15.3 % (11.6-17.2)
[2017-07-20 14:15] LABS: INTERNATIONAL NORMALIZED RATIO 1.2 RATIO; PROTHROMBIN TIME - PATIENT 13.7 SEC (9.8-11.6)
[2017-07-20 14:22] LABS: BICARBONATE 25.3 MEQ/L (21.0-32.0); POTASSIUM 4.2 MEQ/L (3.5-5.1)
[2017-07-20] MEDS ORDERED: PROPOFOL 200 MG/20 ML AMP ONE ×4 (15:04→18:24)
[2017-07-20] MEDS ORDERED: SODIUM CHLOR 0.9% 250 ML INJ 250 ML ONE (15:04)
[2017-07-20] MEDS ORDERED: ISOPROTERENOL HCL 1 MG/5 ML AMP ONE (15:04)
[2017-07-20] MEDS ORDERED: MIDAZOLAM HCL 2 MG/2 ML VIAL ONE (15:04)
[2017-07-20] MEDS ORDERED: VANCOMYCIN HCL 1000 MG VIAL ONE (16:05)
[2017-07-20] MEDS ORDERED: LIDOCAINE HCL 2% 50 ML VIAL ONE (16:05)
[2017-07-20] MEDS ORDERED: HYDROCORTISONE SOD SUCCINATE 100 MG VIAL ONE (16:05)
[2017-07-20] MEDS ORDERED: ceFAZolin INJ 1,000 MG VIAL ONE (16:05)
[2017-07-20] MEDS ORDERED: VANCOMYCIN 500 MG VIAL ONE (16:05)
[2017-07-20] MEDS ORDERED: diphenhydrAMINE HCL 50 MG/ML VIAL ONE (16:05)
[2017-07-20] MEDS ORDERED: FAMOTIDINE 20 MG/2 ML VIAL ONE (16:06)
[2017-07-20] MEDS ORDERED: PHENYLEPHRINE HCL 10 MG/ML VIAL ONE (16:17)
--- NOTE | 2017-07-20 17:25 | CATHPROC ---
[employer] HIS Report Study Information Study Number Admission Scheduled Start Study Start [id number] Jul 20 2017 12:49PM 07/20/2017 Jul 20 2017 4:11PM [place] [facility] Cardiac Pacer/ICD Admit Source Facility Department Other [facility] - Customer Support Technician Physician and Clinical Staff Initial Sydney Segura Journeyman Pressman Aniyah Feng,RT(R) TECH2 Other Anesthesia, RADIO ARTIST Recorder Elen Regan,RN Scrub Jayson Santana,RT(R) Procedures Performed Procedure Location (Site) RF Ablation AV NODE Equipment Time Architectural Superintendent Description Size Mfg Part Number Used/Scraped BIOSENSE MACIAS CATHETER, CELSIUS DS, 8MM, F [id number] 16:39 FR 7 Used INC. TYPE QUAD *[id number] 16:14 NLT SPINE INDUSTRIES PACK, CCL CUSTOM * Used *[id number] 16:14 NLT SPINE PACER WALKER, LIMB * 2530 *[id number] Used [id number] 16:14 [employer]x BLANKET,WARM AIR CCL * Used *[id number] 16:15 [employer] MEDICAL CATHETER, JSN, QUAD FR 5 Used *[id number] 16:15 [employer] MEDICAL CATHETER, JSN, QUAD FR 5 Used *[id number] 16:15 [employer] MEDICAL CATHETER, JSN, QUAD FR 5 Used *[id number] 16:15 [employer] MEDICAL CATHETER, JSN, QUAD FR 5 Used *[id number] 16:14 [employer] ROLA MEDICAL ELECTRODE KIT, QUENTIN X SURFACE * Used *[id number] 16:15 [employer] MEDICAL SHEATH, EPS, FR5 FAST CATH FR 5 Used *[id number] 16:15 [employer] MEDICAL SHEATH, EPS, FR5 FAST CATH FR 5 Used *[id number] [id number] 16:15 [employer] MEDICAL SHEATH, EPS, FR6 FAST CATH FR 6 Used *[id number] [id number] 16:15 [facility] MEDICAL SHEATH, EPS, FR8 FAST CATH FR 8 Used *[id number] [facility] PAD, ELECTROSURGICAL 16:14 * [id number] *[id number] Used SURGICAL GROUNDING (BLUE) Medication Medication Total Dose (Bolus/Oral) Medication Total Dosage/Unit 1% XYLOCAINE 20 mL Medications (Bolus/Oral) Medication Time Given Dosage/Unit Administered By Reason 1% XYLOCAINE 07/20/2017 4:36:46 PM 20 mL Sydney Matos 20 mL 1% XYLOCAINE given in lab by Sydney Matos in Right Groin via Subcutaneous. Medication (Drip) Medication Time Given Dosage/Unit Concentration/Unit Diluent (ml) Solution ISUPREL 07/20/2017 4:57:47 PM 5 mcg/min 1 mg 250 NaCl .9 5 mcg/min ISUPREL given in lab by Anesthesia, RADIO ARTIST via Peripheral IV. Pump/Drip Flow = 75 ml/hr using NaCl .9 with a concentration of 1 mg in 250 ml. Ordered by Sydney Matos. Initial Case Assessment Cardiovascular HR Rhythm NIBP Chest Pain 126 AFIB 93/52 0 Edema Present Skin color Skin None Normal Warm Dry Circulatory - Right Pulses Dorsalis Pedis 1 Scale (0,1,2,3,4,d) Circulatory - Left Pulses Dorsalis Pedis 1 Scale (0,1,2,3,4,d) Neurological State Oriented to time-place- Alert Moves all extremities person Respiration - General Respiration Rate SpO2 (%) O2 (lpm) (B/min) 18 100 3 Chronological Log Time Study Chronological Log 15:50:00 Patient arrived via Bed. 15:50:10 Patient Name, D.O.B, / Armband Verified By R.N. 15:50:55 Anesthesia at bedside. Assumes care of patient. SEE RECORDS FOR ALL MEDS AND VITALS DURING PROCEDURE 16:17:35 paged 16:19:13 Verbal Stimulation=2 Physical Stimulation=2 Airway=2 Respiration=2 TOTAL=8. (0=absent, 1=li mited, 2=present) 16:19:22 Skin Breakdown- LEFT BUTT REDDENED 16:19:37 Patient Warmer Placed on the Table. 16:19:37 Disposable Defibrillator Pads Placed On Patient. 16:19:38 Tuan Prominences Protected 16:19:39 IV Warmer Connected To Patient. 16:19:40 A # 20 IV was noted in the Hand (left). Grade = 0 16:20:12 A # 20 IV was noted in the Antecubital (right). Grade = 0 16:20:44 History and physical on the chart or being dictated. Assessment: Initial Case, FE=893 BPM, Rhythm=AFIB, NIBP=93/52 mmhg, Chest Pain=0, Edema=None, Color=Normal, Skin = Warm, Dry Right Pulses: Jerson Ped=1 16:20:45 Left Pulses: Jerson Ped=1 Neurological: State=Alert, Ox3, LAKHANI Respiration: Resp=18 B/min, WzP5=530 %, O2=3 lpm 16:21:29 Table restraints applied according to hospital policy 16:21:32 Bilateral groins prepped with 2% chlorhexidine, and draped after a 3 minute waiting time. 16:22:01 MD responded Time Out. Correct patient, procedure, procedure equipment, site and side verified with physicia n present. Time 16:34:00 concurred by MD, individual staff and RADIO ARTIST. Time Out #2 - Consents verified, patient in correct position, all results are labled and displa yed, safety precautions 16:34:15 taken, antibiotics administered. Time out concurred by MD, individual staff and RADIO ARTIST in procedu re 16:35:15 Case Start 16:36:46 20 mL 1% XYLOCAINE given in lab by Sydney Matos in Right Groin via Subcutaneous. 16:40:22 Vascular access was obtained in the Fem Vein (left). 16:40:45 Vascular access was obtained in the Fem Vein (left). 16:41:50 Vascular access was obtained in the Fem Vein (left). 16:41:55 Vascular access was obtained in the Fem Vein (left). 16:42:05 A SHEATH, EPS, FR5 FAST CATH FR 5 was advanced into the Fem Vein (right) using the Modified Seldinger technique. 16:42:55 A SHEATH, EPS, FR5 FAST CATH FR 5 was advanced into the Fem Vein (right) using the Modified Seldinger technique. 16:43:10 A SHEATH, EPS, FR6 FAST CATH FR 6 was advanced into the Fem Vein (right) using the Modified Seldinger technique. 16:43:55 A SHEATH, EPS, FR8 FAST CATH FR 8 was advanced into the Fem Vein (right) using the Modified Seldinger technique. A CATHETER, JSN, QUAD FR 5 was advanced vis Fem Vein (right) and placed in the CS. Placement wa s visually 16:45:07 confirmed under fluoroscopy. A CATHETER, JSN, QUAD FR 5 was advanced vis Fem Vein (right) and placed in the HIS. Placement w as visually 16:45:21 confirmed under fluoroscopy. A CATHETER, JSN, QUAD FR 5 was advanced vis Fem Vein (right) and placed in the HRA. Placement w as visually 16:45:26 confirmed under fluoroscopy. A CATHETER, JSN, QUAD FR 5 was advanced vis Fem Vein (right) and placed in the HRA. Placement w as visually 16:45:32 confirmed under fluoroscopy. 16:52:10 Catheter was removed A CATHETER, CELSIUS DS, 8MM, F TYPE QUAD FR 7 was advanced vis Fem Vein (right) and placed in t he AV NODE. 16:54:54 Placement was visually confirmed under fluoroscopy. 16:55:35 RF Ablation of the AV NODE with a CATHETER, CELSIUS DS, 8MM, F TYPE QUAD FR 7. 5 mcg/min ISUPREL given in lab by Anesthesia, RADIO ARTIST via Peripheral IV. Pump/Drip Flow = 75 ml/hr using NaCl .9 with 16:57:47 a concentration of 1 mg in 250 ml. Ordered by Sydney Matos. 17:06:37 ABLATION AND HIS CATHETER REMOVED 17:24:48 CHANGING ROOM AROUND FOR IMPLANT End Study - Contrast Media Used In Study Contrast Total Opened (mL) Total Used (mL) Total Wasted (mL) Unspecified 0 0 0 End Study - Radiation Exposure Fluoro Time (minutes) 6.7 End Study - Patient Disposition Complications Transferred To Interventional Outcome No Customer Support Technician Holding successful
[2017-07-20] MEDS ORDERED: LIDOCAINE HCL 1% 50 ML VIAL INFIL PRN (18:45)
[2017-07-20] MEDS ORDERED: ONDANSETRON HCL 4 MG/2 ML VIAL IV PUSH PRN (18:45)
[2017-07-20] MEDS ORDERED: oxyCODONE/ACETAMINOPHEN 5 MG/325 MG TAB PO PRN (18:45)
[2017-07-20] MEDS ORDERED: WARFARIN SOD 2.5 MG TAB PO SCH (18:45)
[2017-07-20] MEDS ORDERED: ATROPINE SULFATE 1 MG/ML VIAL IV PUSH PRN (18:45)
[2017-07-20] MEDS ORDERED: LORazepam 2 MG/ML VIAL IV PUSH PRN (18:45)
[2017-07-20] MEDS ORDERED: BACITRACIN OINT 0.9 GM PKT TOP ONE (18:45)
[2017-07-20] MEDS ORDERED: SODIUM CHLOR 0.9% 250 ML INJ 250 ML IV PRN (18:45)
[2017-07-20] MEDS ORDERED: METOCLOPRAMIDE HCL 10 MG/2 ML VIAL IV PUSH PRN (18:45)
[2017-07-20] MEDS ORDERED: SODIUM CHLORIDE 0.9% FLUSH 10 ML FLUSH IV FLUSH PRN (18:45)
[2017-07-20 19:00] VITALS: BP 106/63; PULSE 80; RESP 18; TEMP 97.2; O2SAT 97
[2017-07-20] MEDS ORDERED: MORPHINE SULFATE 2 MG/ML INJ ONE (19:02)
[2017-07-20] MEDS ORDERED: ONDANSETRON HCL 4 MG/2 ML VIAL ONE (19:06)
--- NOTE | 2017-07-20 19:07 | CATHPROC ---
[employer] HIS Report Study Information Study Number Admission Scheduled Start Study Start [id number] Jul 20 2017 12:49PM 07/20/2017 Jul 20 2017 5:26PM [place] Service Electrophysiology Study Admit Source Facility Department Other [facility] - Feed Manager Physician and Clinical Staff Initial Sydney Segura [place] Polisher Aniyah Feng,RT(R) TECH2 Other Anesthesia, WHALE TRAINER Recorder Elen Regan,RN Scrub Jayson Santana,RT(R) Procedures Performed Procedure Location (Site) Vessel Name Lead Insertion Venogram Subclav. Vein (Lft Subclavian Vein Wire insertion Fem Art (right) Femoral Art Equipment Time Planogrammer Description Size Mfg Part Number Used/Scraped [id number] 18:02 [employer] [facility] WIRE, AS[employer]entures PROWATER 180CM 180CM Used *[id number] DEFIBRILLATOR, ITREVIA 7 HF-T 18:18 BIOTRONIK VDE-DDDRV [id number] Used QP (BULK) 17:57 BIOTRONIK LEAD, PLEXA PRO-MRI SD 65/18 [id number] Used DERMABOND, ADHESIVE SKIN [id number] 17:51 CORDIS/PACER * Used GLUE MINI *[id number] TP-1103 17:51 MEDLINE INDUSTRIES SUTURE, STRIP PLUS 1/2" * Used *[id number] 17:51 MEDLINE PACER WALKER, LIMB * 2530 *[id number] Used [id number] 17:51 MEDLINE PACER PACK, PACER CUSTOM * Used *[id number] 17:56 [employer] PACER SAFE SHEATH, FR8, 13CM FR 8 [id number] Used 18:06 [employer] MEDICAL PACER SAFE SHEATH, FR9, 13CM FR 9 [id number] Used 17:51 Needle Sponge Count 2 22 Used 17:50 Needle Sponge Count 20 200 Used 17:50 Needle Sponge Count 4 4 Used 18:08 NYCOMED OMNIPAQUE, 350 MG, 50ML 50ML [id number] Used SUTURE, 0 ETHIBOND [CT1] (CX21D), 8pk SUTURE, 2-0 VICRYL [CT1] (UTD664H) SUTURE, 2-0 VICRYL [CT1] (LTM061I) [id number] 17:51 [employer] MED[employer] BLANKET,WARM AIR CCL * Used *[id number] [facility] PAD, ELECTROSURGICAL 17:51 * [id number] *[id number] Used SURGICAL GROUNDING ORANGE LEAD, ATTAIN PERFORMA 18:10 VITATRON MEDTRONIC 88CM 4398-88CM Used STRAIGHT, 88CM 17:52 VITATRON MEDTRONIC PLASMABLADE, PEAD 3.0S * [id number] Used [id number] 17:51 [employer] REENA. / * Used *67221 Equipment Model, Serial, Lot Number and Expiration Data Description Model Number Serial Number Lot Number Expiration Date DEFIBRILLATOR, ITREVIA 7 HF-T [id number] 04-04-2018 QP (BULK) LEAD, ATTAIN PERFORMA 4398-88 [id number] 02-24-2019 STRAIGHT, 88CM LEAD, PLEXA PRO-MRI SD 18 [id number] 10-05-2017 Medication Medication Total Dose (Bolus/Oral) Medication Total Dosage/Unit 2% XYLOCAINE 50 mL Medications (Bolus/Oral) Medication Time Given Dosage/Unit Administered By Reason 2% XYLOCAINE 07/20/2017 5:48:10 PM 50 mL Sydney Matos 50 mL 2% XYLOCAINE given in lab by Sydney Matos in Left shoulder via Subcutaneous. LEFT UPPER CHEST Chronological Log Time Study Chronological Log 17:26:43 NOTE: This patient is undergoing an additional procedure while still in the Cardiac Cath L ab. 17:26:48 Initial procedure has been completed. Beginning additional procedure. 17:30:54 Bovie ground pad applied to: RIGHT THIGH 17:31:10 2% CHLORHEXIDINE GLUCONATE WASH AND NASAL SWIPE DONE PRIOR TO PROCEDURE. FIRST Sponge And Instrument Count Done by Jayson Santana, RT(R). 17:31:43 Hypo's: 4, Sponges: 20, Bovie/scratch: 2 Sutures: 10, Blades: 1, Instruments: 26, Syveck Patches: 0 AGREED WITH ANIYAH Rodriguez Time Out. Correct patient, procedure, procedure equipment, site and side verified with physici an present. Time 17:46:20 concurred by MD, individual staff and WHALE TRAINER. Time Out #2 - Consents verified, patient in correct position, all results are labled and displ ayed, safety precautions 17:46:25 taken, antibiotics administered. Time out concurred by , individual staff and WHALE TRAINER in proced ure 17:47:17 Case Start 17:48:10 50 mL 2% XYLOCAINE given in lab by Sydney Matos in Left shoulder via Subcutaneous. LEFT U PPER CHEST 17:51:02 Surgical Incision Made. 17:51:03 A pocket was created at the L Upper Chest. 17:51:13 A device was explanted. 17:52:52 Pocket flushed with antibiotic solution 17:53:19 Vascular access was obtained in the Subclav. Vein (Lft. 17:53:34 Vascular access was obtained in the Subclav. Vein (Lft. 17:55:34 A SAFE SHEATH, FR8, 13CM FR 8 was advanced into the Subclav. Vein (Lft using the Modified Seldinger technique. 17:57:42 A LEAD, PLEXA PRO-MRI SD 65/18 was inserted and positioned in the RV. 17:57:48 Lead placement verified under fluoroscopy 17:57:52 The RV lead impedance and threshold being tested. 17:58:14 The RV lead was sutured to the fascia. 18:02:17 A WIRE, School YourselfWATER 180CM 180CM was inserted via Fem Art (right). 18:05:31 A SAFE SHEATH, FR9, 13CM FR 9 was advanced into the Subclav. Vein (Lft using the Modified Seldinger technique. 18:05:48 The Subclav. Vein (Lft was manually injected with 10 cc's of contrast. OMNIPAQUE, 350 MG, 50ML 50ML used. 18:07:30 LV SYSTEM INSERTED 18:08:42 The Subclav. Vein (Lft was manually injected with 10 cc's of contrast. OMNIPAQUE, 350 MG, 50ML 50ML used. 18:11:11 A LEAD, ATTAIN PERFORMA STRAIGHT, 88CM 88CM was inserted and positioned in the CS/LV. 18:11:25 Lead placement verified under fluoroscopy 18:11:48 The CS/LV lead impedance and threshold is being tested. 18:13:00 The CS/LV lead was sutured to the fascia. 18:30:35 RV LEAD REPOSITIONED 18:32:21 OLD RV LEAD REMOVED 18:36:26 A DEFIBRILLATOR, ITREVIA 7 HF-T QP (BULK) VDE-DDDRV was connected and placed in the pocket . SECOND Sponge And Instrument Count Done by Jayson Santana RT(R). 18:39:21 Hypo's: 4, Sponges: 20, Bovie/scratch: 2 Sutures: 10, Blades: 1, Instruments: ~INSTRU~, Syveck Patches: 0 AGREED WITH ANIYAH H 18:39:45 Pocket flushed with antibiotic solution 18:40:21 QUAD CATHETERS REMOVED 18:42:05 The pocket was closed. FINAL Sponge And Instrument Count Done by Jayson Santana RT(R). 18:43:19 Hypo's: 4, Sponges: 20, Bovie/scratch: 2 Sutures: 10, Blades: 1, Instruments: ~INSTRU~, Syveck Patches: 0 AGREED WITH ANIYAH H 18:44:02 Implant Procedure was performed. 18:44:09 A Bivent ICD Implant . (Dual) 18:44:54 Case End 18:45:29 Bedside Report will be given. 18:45:53 CIC called. Spoke to MILTON 18:46:07 Steri-strips and a sterile dressing applied to site. 18:47:57 ALL Sheaths removed; pressure applied to access site. 18:48:18 No case complications noted. 18:48:21 Cine recording checked. 18:48:57 Implantable Device card placed in patient's chart. 18:49:04 Defibrillator and ground pads removed. Skin intact. 18:51:12 A sling was placed on the affected arm. 18:52:10 Patient moved to [facility] End Study - Contrast Media Used In Study Contrast Total Opened (mL) Total Used (mL) Total Wasted (mL) Omnipaque 50 20 30 End Study - Radiation Exposure Fluoro Time (minutes) 13.6 End Study - Patient Disposition Complications Transferred To Interventional Outcome No Telemetry Bed successful
[2017-07-20] MEDS: oxyCODONE/ACETAMINOPHEN 5 MG/325 MG TAB PO PRN (19:38)
[2017-07-20 20:00] VITALS: PULSE 80
--- NOTE | 2017-07-20 20:55 | RADRPT ---
EXAM DATE/TIME: 07/20/2017 19:42 [place] COMPARISON: CHEST SINGLE AP, November 23, 2015, 16:02. INDICATIONS : Status post pacemaker, pneumothorax MEDICAL HISTORY : Cardiovascular disease. Hypertension. Diabetes mellitus type 2. SURGICAL HISTORY : None. ENCOUNTER: Initial ACUITY: 1 day PAIN SCORE: Non-responsive. LOCATION: Bilateral chest FINDINGS: There is a pacing device in place from the left subclavian approach. The heart size is enlarged. Ther e is increased density at the medial left base. There is a calcified granuloma at the left base. No e ffusion is seen. No pneumothorax is seen. The bones are osteopenic. There some mild cavity of the sup erior T8 vertebral body. This finding is unchanged. CONCLUSION: 1. Suspected atelectasis or consolidation at the medial left base. 2. The heart size is enlarged. There is a pacing device seen in the left chest. Hernandez Ortiz MD on July 20, 2017 at 20:52 Board Certified Radiologist. This report was verified electronically.
[2017-07-20 21:00] VITALS: PULSE 80
[2017-07-20] MEDS ORDERED: SACUBITRIL/VALSARTAN 24 MG-26 MG TAB PO SCH (21:00)
[2017-07-20] MEDS ORDERED: FOLIC ACID 1 MG TAB PO SCH (21:00)
[2017-07-20] MEDS ORDERED: SODIUM CHLORIDE 0.9% FLUSH 10 ML FLUSH IV FLUSH SCH (21:00)
[2017-07-20] MEDS ORDERED: CARVEDILOL 12.5 MG TAB PO SCH (21:00)
[2017-07-20 22:00] VITALS: PULSE 80
[2017-07-20 23:00] VITALS: BP 89/69; PULSE 80; RESP 16; TEMP 98.2; O2SAT 95
[2017-07-21] VITALS (8 sets, daily range): BP systolic 84–130; BP diastolic 54–70; PULSE 60–80; RESP 16–20; TEMP 97.8–98.5; O2SAT 95–97
[2017-07-21] MEDS ORDERED: ceFAZolin 2 GM PREMIX 50 ML IV SCH
[2017-07-21] MEDS: oxyCODONE/ACETAMINOPHEN 5 MG/325 MG TAB PO PRN (00:59)
[2017-07-21] MEDS ORDERED: FUROSEMIDE 40 MG TAB PO SCH (09:00)
[2017-07-21] MEDS ORDERED: OMEGA ACID ETHYL ESTERS PO SCH (09:00)
[2017-07-21] MEDS ORDERED: MULTIVITAMIN TAB PO SCH (09:00)
[2017-07-21] MEDS ORDERED: VITAMIN E 100 UNIT PO SCH (09:00)
[2017-07-21] MEDS ORDERED: CHOLECALCIFEROL (VIT D3) 5000 UNIT CAP PO SCH (09:00)
[2017-07-21] MEDS ORDERED: POTASSIUM CHLORIDE 20 MEQ CONTROLLED RELEASE TAB PO SCH (09:00)
--- NOTE | 2017-07-21 09:37 | HHI.PR ---
Subjective Remarks Feeling better, no tachy Objective Vital Signs Date Time Temp Pulse Resp B/P (MAP) Pulse Ox O2 Delivery O2 Flow Rate FiO2 07/21/17 05:00 80 07/21/17 04:00 80 07/21/17 03:00 80 07/21/17 03:00 98.0 80 16 90/54 (66) 95 07/21/17 02:26 14 07/21/17 02:00 80 07/21/17 01:00 80 07/21/17 00:00 80 07/20/17 23:00 98.2 80 16 89/69 (76) 95 07/20/17 23:00 80 07/20/17 22:00 80 07/20/17 21:00 80 07/20/17 20:00 80 07/20/17 19:00 97.2 80 18 106/63 (77) 97 07/20/17 13:41 97.9 108 16 93/52 (66) 99 I/O 07/20/17 07/20/17 07/20/17 07/21/17 07/21/17 07/21/17 07:00 15:00 23:00 07:00 15:00 23:00 Intake Total 340 ml Output Total 300 ml Balance 40 ml Intake Oral 240 ml IV Total 100 ml Output Urine Total 300 ml Result Diagram: 07/20/17 1335 07/20/17 1335 Imaging Alert, fully oriented Lungs: ventilated Heart: S1, S2 regular, no gallop Abdomen: soft, no mass Ext: no edema Left infraclavicular area with clean surgical wound Last Impressions Chest X-Ray 07/20/17 0000 Signed Impressions: Service Date/Time: Thursday, July 20, 2017 19:42 - CONCLUSION: 1. Suspected atelectasis or consolidation at the medial left base. 2. The heart size is enlarged. There is a pacing device seen in the left chest. Hernandez Ortiz MD Current Medications Medications (Trade) Dose Ordered Sig/Scarlett Route Start Time Stop Time Status Last Admin (Percocet 5-325 Mg) 1 tab Q4H PRN PO 07/20/17 18:45 (Percocet 5-325 Mg) 2 tab Q4H PRN PO 07/20/17 18:45 07/21/17 00:59 (Ativan Inj) 0.5 mg UNSCH PRN IV PUSH 07/20/17 18:45 07/21/17 18:44 (Atropine Inj) 0.5 mg UNSCH PRN IV PUSH 07/20/17 18:45 Sodium Chloride 250 ml @ 500 mls/hr ONCE PRN IV 07/20/17 18:45 07/21/17 18:44 (Reglan Inj) 10 mg Q4H PRN IV PUSH 07/20/17 18:45 (Zofran Inj) 4 mg Q4H PRN IV PUSH 07/20/17 18:45 (Xylocaine 1% Inj (50 ml)) 10 ml UNSCH PRN INFIL 07/20/17 18:45 07/21/17 18:44 Cefazolin Sodium/ Dextrose 50 ml @ 100 mls/hr Q8H IV 07/21/17 00:00 07/21/17 16:29 07/20/17 23:21 (NS Flush) 2 ml BID IV FLUSH 07/20/17 21:00 07/20/17 21:26 (NS Flush) 2 ml UNSCH PRN IV FLUSH 07/20/17 18:45 (Coreg) 25 mg BID PO 07/20/17 21:00 07/20/17 21:20 (Vitamin D3) 5,000 units DAILY PO 07/21/17 09:00 (Folate) 1 mg HS PO 07/20/17 21:00 07/20/17 21:20 (Lasix) 40 mg DAILY PO 07/21/17 09:00 (KCl) 20 meq DAILY PO 07/21/17 09:00 (Entresto 24-26 Mg) 1 tab BID PO 07/20/17 21:00 07/20/17 21:20 (Coumadin) 2.5 mg SuTuWeFrSa@1600 PO 07/20/17 18:45 (Theragran) 1 tab DAILY PO 07/21/17 09:00 Patient Own Medication PT OWN MED: (Cztxu-6-Iqvy Ethyl Est... DAILY PO 07/21/17 09:00 Future Hold Assessment and Plan Problem List: (1) Biventricular automatic implantable cardioverter defibrillator in situ ICD Codes: Z95.810 - Presence of automatic (implantable) cardiac defibrillator Plan: SP BIV ICD insertion Device well functioning Clean surgical wound Can be DH. Follow up as previously scheduled (2) Atrial fibrillation with RVR ICD Codes: I48.91 - Unspecified atrial fibrillation Status: Resolved Plan: SP AV node ablation HR control Doing better SOB significantly improve (3) Heart failure Status: Chronic Plan: Continue with current management Sydney Matos MD Jul 21, 2017 09:37
[2017-07-21] MEDS ORDERED: CEPH-460 PO (09:42)
--- NOTE | 2017-07-21 12:30 | MA ---
cc: KEVEN SOLIS M.D. DATE 07/20/2017 PROCEDURE PERFORMED Electrophysiology study, CS cannulation, 3-D mapping and AV node ablation, repeat electrophysiology study on Isuprel infusion. INDICATIONS Mrs. Feliz is an 82-year-old female with atrial fibrillation with congestive heart failure, ejection fraction around 30-35%, heart rate very difficult to control with medication, shortness of breath on minimal activity. He is not a candidate for atrial fibrillation ablation who will undergo AV node ablation and Bi-V pacing. The risks, the nature and the benefit of the procedure were clearly stated to her and her family. The risks include pneumothorax, cardiac perforation, stroke, need for open heart surgery and even . The patient understood and agreed to proceed. PROCEDURE After written informed consent was obtained, the patient was brought to the EP lab where she was prepped and draped in the usual sterile fashion. Conscious sedation was initiated and maintained throughout the procedure by anesthesiologist. Once sedation verified, the right inguinal area was anesthetized with 2% Xylocaine. Using modified Seldinger technique, the right femoral vein was cannulated on four occasions and four guidewires were advanced over the wire, two 5, one 6 and one 8-Comoran Hemaquet were advanced. Then under fluoroscopic guidance through the 5 and 6-Comoran Hemaquet, three 5-Comoran Faiza curved quadripolar electrophysiology catheters were advanced and positioned on the coronary sinus and right ventricular apex. Basic interval was measured. H-V was around 50 milliseconds. Ventricular pacing protocol was performed. There was VA conduction. The permanent pacemaker was reprogrammed to VVI 40. Then through the 8-Comoran Hemaquet, a Cordis Bernstein F-curve 8 mm mapping radiofrequency ablation catheter was advanced. Using TenTwenty7 endocardial solution mapping system, a two-dimensional configuration of the right atrium was obtained. Then the catheter was placed at the tricuspid valve annulus. Radiofrequency energy was delivered. During ablation, the patient went to a junctional, then VVI 40 pacing. Further burn was delivered in the area. Then I did pace at 800 milliseconds cycle length. Then Isuprel was infused at 10 sonu. There was no conduction resumed. No tachyarrhythmia was induced. At that point, procedure was complete. All catheters except the RV catheter were removed. The patient is going to be kept on the table and a biventricular pacer defibrillator will be implanted for sudden prevention and resynchronization therapy. No incident report. The patient tolerated procedure. Blood loss minimal. 1. Electrocardiogram: At baseline, the patient was in atrial Fibrillation. Postprocedure, the patient is V pacing. 2. Basic interval: The base cycle length was 144-430 milliseconds. 3. Tachyarrhythmia: AV node was mapped and ablated. Ablation was successful. CONCLUSION Successful electrophysiology study, mapping and radiofrequency ablation of AV node. RECOMMENDATIONS AND RECOMMENDATION The patient is going to be kept on the table. Biventricular pacer defibrillator will be implanted for sudden prevention and resynchronization therapy. MD STEFFANIE Malik/LIDIA /11:49 AM /12:24 PM
--- NOTE | 2017-07-21 13:37 | MP ---
cc: KEVEN SOLIS M.D. DATE OF SURGERY 07/20/2017 PROCEDURE PERFORMED Permanent pacemaker removal, right ventricular lead extraction, biventricular pacer defibrillator insertion. That was a complex case. INDICATIONS Mrs. Feliz is an 82-year-old female with atrial fibrillation. Heart rate unable to control with medication, congestive heart failure who will undergo an AV node ablation and biventricular pacer defibrillator insertion. The risks, the nature and the benefit of the procedure are clearly stated to her. The risks include pneumothorax, cardiac perforation, stroke, need for open-heart surgery and even . The patient understood and agreed to proceed. PROCEDURE After writing informed consent was obtained prior to electrophysiology study, the patient was kept on the table where he was prepped and draped in the usual sterile fashion. Conscious sedation was initiated and maintained throughout the procedure by anesthesiologist. Once sedation verified, the left infraclavicular over the existing generator was anesthetized with 2% Xylocaine. Using #11 scalpel, a 3-cm incision was made. Dissection was then taken down through the deep fascial layer using Bovie cautery and blunt dissection. Once exposed, the generator was removed from the pocket. Then scar tissue was removed around the lead. Also, the pocket was expanded. Then using modified Seldinger technique, the left subclavian vein was cannulated on two occasions and two guidewires were advanced. A 2-0 Vicryl suture was placed around the wires to prevent back bleeding. At this point over the lateral wire, an 8-[place] dilator and introducer was advanced. As the dilator and wire were removed, an active fixation right ventricular pacing sensing defibrillatory lead was advanced. After adequate pacing and sensing thresholds were obtained, the lead was secured in the pocket using #2 Ethibond suture. Then over the remaining wire, a 9-[place] dilator and introducer was advanced. As the dilator and wire were removed, a CS cannulation sheath was advanced. Through the sheath, a quadripolar steerable catheter was advanced. After multiple attempts, the coronary sinus was cannulated. CS venography showed a very small lateral branch. Using a [place]ater wire, the lateral branch was cannulated and the lead was advanced over the wire. After adequate pacing and sensing thresholds were obtained, the peal away introducer was removed and the introducer was removed and the lead was secured in the pocket using #2 Ethibond suture. At that point, the pocket was copiously irrigated using antibiotic solution. The leads were connected to the generator. I decided to proceed at this point to do the lead extraction. The permanent pacemaker was removed. The scar tissue was removed around the lead. A stylet was advanced to the lead. After multiple turns, I did unscrew the lead and with multiple gentle traction, the lead dislodged without difficulty. Lead extraction was performed. A 2-0 Vicryl suture was placed at the exit point to prevent bleeding. At that point, the leads and the biventricular defibrillator and the new lead were placed into the pocket. I did proceed with wound closure. The deep fascial layer was approximated using #2-0 Vicryl suture in a continuous fashion. The subcutaneous layer was approximated using #2-0 Vicryl suture in a continuous fashion. The subcuticular layer was approximated using 2-0 Vicryl suture in a continuous fashion. Dermabond adhesive was applied to the wound followed by sterile pressure dressing. There were no complications. The patient tolerated the procedure. Blood loss, minimal. 1. Implanted Hardware: The implanted biventricular pacer defibrillator is a [employer] model number 884697, serial number [id number]. The right ventricle pacing sensing defibrillatory lead is a [employer] model number 02129, serial number [id number]. The left ventricular pacing sensing is a [employer] model number 4398-88, serial number [id number]. 2. Explanted hardware: The explanted permanent pacemaker is a [employer] serial number [id number]. The explanted right ventricular pacing sensing lead is a [employer] serial number [id number]. 3. Threshold: The right ventricular pacing threshold in the bipolar mode was 0.8 volts at 0.4 milliseconds. Lead impedance 913 ohms. R-wave could not be measured. The patient is pacemaker dependent. The left ventricular pacing bipolar mode was 1.9 volts at 0.4 milliseconds. Lead impedance is 8086 ohms. 4. Settings: The device set in a VVIR 80, upper rate limit 100 beats per minute, LV first by 40 milliseconds. Defibrillatory portion for two zones, one zone for ventricular tachycardia between 160-240 beats per minute. Initial therapy consisted of one burst of ATP, one ramp, 81%, 10 pause, 70-second decremental followed by 20, than 30, and all subsequent shocks at 40 defibrillatory shock. Second zone for ventricular fibrillation above 240 beats per minute, first therapy at 30 and all subsequent shocks at 40 joule defibrillatory shock. CONCLUSION Successful biventricular pacer/defibrillator insertion. Successful permanent pacemaker removal and right ventricular lead extraction. COMMENT AND RECOMMENDATIONS The patient is going to be transferred to the telemetry unit. He will be observed and when stable can be discharged home. MD STEFFANIE Malik/LIDIA /11:53 AM /1:29 PM
--- NOTE | 2017-07-21 17:52 | EKG ---
Date Performed: 07/20/2017 Time Performed: 13:45:44 PTAGE: 82 years EKG: Atrial fibrillation with rapid ventricular response. Left bundle branch block Possible late ral infarct - age undetermined Abnormal ECG PREVIOUS TRACING : 09/28/2016 13.46 Since the prior tracing, there is no longer evidence of garcía kup ventricular pacing, primarily because the rate is now a rapid ventricular response of the atrial fibrillation. DOCTOR: Renee Mendoza Interpretating Date/Time 07/21/2017 17:51:48
--- NOTE | 2017-07-21 17:53 | EKG ---
Date Performed: 07/20/2017 Time Performed: 20:41:36 PTAGE: 82 years EKG: Atrial fibrillation with a paced ventricular rhythm Abnormal ECG PREVIOUS TRACING : 07/20/2017 13.45 Since the prior tracing, the ventricular response of the at rial fibrillation is now controlled, and the rhythm is paced. The tracings are thus not directly comp arable. DOCTOR: Renee Mendoza Interpretating Date/Time 07/21/2017 17:52:45
--- NOTE | 2017-07-21 17:53 | EKG ---
Date Performed: 07/21/2017 Time Performed: 04:28:02 PTAGE: 82 years EKG: Atrial fibrillation with a paced ventricular rhythm Abnormal ECG PREVIOUS TRACING : 07/20/2017 20.41 No serial change since the most recent tracing. DOCTOR: Renee Mendoza Interpretating Date/Time 07/21/2017 17:53:13
== END 2017-07-21 12:48 | disposition home or self-care (01) ==
LOC: HDIC 12:49 → HDOC 12:49 → HCIS 19:30 → HDOC 07-21 12:48
PROVIDERS: ATTEND Internal Medicine Interventional Cardiology
DX: I50.9 Heart failure, unspecified (principal); I42.9 Cardiomyopathy, unspecified; I48.91 Unspecified atrial fibrillation; R06.02 Shortness of breath; R53.83 Other fatigue; J45.909 Unspecified asthma, uncomplicated; Z79.01 Long term (current) use of anticoagulants
CPT/HCPCS: 00530; 33225; 33233; 33234; 33249; 71010; 80048; 85025; 85610; 85730; 86850; 86900; 86901; 93005; 93613; 93620; 93623; 93650; C1730; C1732; C1769; C1777; C1882; C1900; C2630; J0690; J1200; J1720; J2250; J2270; J2370; J2405; J3010; J3370; J7050; 33224

== ENCOUNTER 2017-08-12 22:27 | Emergency (ER) | payer MEDICARE ==
[~2017-08-12] VITALS: Ht 149.9 cm; Wt 71.8 kg
[~2017-08-12 22:27] MED LIST changes: -ADVI200C5 PO; +CHOL5000 PO; -DIGO0.12 PO; -FLUT50SP NASAL; -HYDR-3533 PO; -MEIJ25CA PO; +MELA1TAB18 PO; -METF500T PO; +MULT-65 PO; +OMEG1CAP53 PO; +VITA100T65 PO; +calcium PO
[2017-08-12 22:55] VITALS: BP 125/59; PULSE 80; RESP 18; TEMP 100.2; O2SAT 87; O2SAT 97
[2017-08-12 23:11] VITALS: BP 125/59; PULSE 80; RESP 18; TEMP 100.2; O2SAT 97
[2017-08-12] MEDS ORDERED: CARV6.252 PO (23:21)
[2017-08-12] MEDS ORDERED: ONDANSETRON HCL 4 MG/2 ML VIAL IV PUSH ONE (23:45)
[2017-08-12] MEDS ORDERED: HYDROmorphone HCL PF 1 MG/ML VIAL IV PUSH ONE (23:45)
[2017-08-12] MEDS ORDERED: ACETAMINOPHEN 325 MG TAB PO ONE (23:45)
[2017-08-13 00:05] VITALS: BP 131/76; PULSE 80; RESP 18; TEMP 100.2; O2SAT 97
--- NOTE | 2017-08-13 00:30 | RADRPT ---
EXAM DATE/TIME: 08/13/2017 00:13 [facility] COMPARISON: CHEST SINGLE AP, July 20, 2017, 19:42. INDICATIONS : Fever. MEDICAL HISTORY : Cardiovascular disease. Hypertension. Diabetes mellitus type 2. SURGICAL HISTORY : Pacemaker. ENCOUNTER: Initial ACUITY: 1 day PAIN SCORE: 8/10 LOCATION: Bilateral chest FINDINGS: Cardiomegaly and dual-lead device again noted. The lungs are clear. The osseous structures are intact . CONCLUSION: No acute disease. Evgeny Castrejon MD on August 13, 2017 at 0:29 Board Certified Radiologist. This report was verified electronically.
[2017-08-13 01:07] LABS: AUTOMATED NEUTROPHIL # 9.1 TH/MM3 (1.8-7.7); BASOPHIL % 0.3 % (0.0-2.0); EOSINOPHIL # 0.4 TH/MM3 (0-0.4); EOSINOPHIL % 2.9 % (0.0-4.0); HEMATOCRIT 32.1 % (35.0-46.0); LYMPH % 14.8 % (9.0-44.0); LYMPHOCYTE # 1.9 TH/MM3 (1.0-4.8); MEAN CELL VOLUME 61.9 FL (80.0-100.0); MEAN CORPUSCULAR HEMOGLOBIN 19.7 PG (27.0-34.0); MEAN CORPUSCULAR HGB CONC 31.9 % (32.0-36.0); MONO % 9.1 % (0.0-8.0); NEUT % 72.9 % (16.0-70.0); PLATELET COUNT 267 TH/MM3 (150-450); RED BLOOD COUNT 5.19 MIL/MM3 (4.00-5.30); RED CELL DISTRIBUTION WIDTH 14.7 % (11.6-17.2); WHITE BLOOD COUNT 12.6 TH/MM3 (4.0-11.0)
[2017-08-13 01:14] LABS: HEMO FLAGS AUTO DIFF
[2017-08-13 01:22] LABS: BICARBONATE 22.7 MEQ/L (21.0-32.0)
[2017-08-13 01:28] LABS: INTERNATIONAL NORMALIZED RATIO 1.1 RATIO; PROTHROMBIN TIME - PATIENT 11.2 SEC (9.8-11.6)
[2017-08-13 01:30] VITALS: BP 114/57; PULSE 80; RESP 18; TEMP 98.5; O2SAT 95
[2017-08-13 01:35] LABS: OVALOCYTES 1+ (NORMAL); PLATELET ESTIMATE SMEAR NORMAL (NORMAL); PLATELET MORPHOLOGY NORMAL (NORMAL); SCAN/DIFF AUTO DIFF CONFIRMED
[2017-08-13] MEDS ORDERED: SODIUM CHLORID 0.9% 500 ML INJ 500 ML IV ONE (01:45)
--- NOTE | 2017-08-13 02:39 | RADRPT ---
EXAM DATE/TIME: 08/13/2017 02:28 [facility] COMPARISON: CT BRAIN W/O CONTRAST, March 25, 2016, 11:57. INDICATIONS : Complains of neck and shoulder pain for 2 days. Cephalgia RADIATION DOSE: 65.90 CTDIvol (mGy) MEDICAL HISTORY : Congestive hearrt failure. Hypertension. AFIB SURGICAL HISTORY : Tonsillectomy. Pacemaker.Bilat eye implants ENCOUNTER: Initial ACUITY: 2 days PAIN SCALE: 10/10 LOCATION: cranial TECHNIQUE: Multiple contiguous axial images were obtained of the head. Using automated exposure control and adj ustment of the mA and/or kV according to patient size, radiation dose was kept as low as reasonably a chievable to obtain optimal diagnostic quality images. DICOM format image data is available electro nically for review and comparison. FINDINGS: CEREBRUM: The ventricles are normal for age. No evidence of midline shift, mass lesion, hemorrhage or acute in farction. No extra-axial fluid collections are seen. POSTERIOR FOSSA: The cerebellum and brainstem are intact. The 4th ventricle is midline. The cerebellopontine angle i s unremarkable. EXTRACRANIAL: The visualized portion of the orbits is intact. SKULL: The calvaria is intact. No evidence of skull fracture. CONCLUSION: No acute disease. Evgeny Castrejon MD on August 13, 2017 at 2:37 Board Certified Radiologist. This report was verified electronically.
--- NOTE | 2017-08-13 02:56 | RADRPT ---
EXAM DATE/TIME: 08/13/2017 02:28 [facility] COMPARISON: No previous studies available for comparison. INDICATIONS : Right sided neck and shoulder pain for 2 days. RADIATION DOSE: 26.41 CTDIvol (mGy) MEDICAL HISTORY : Congestive hearrt failure. Hypertension. AFIB SURGICAL HISTORY : Tonsillectomy. Pacemaker.Bilat eye implants ENCOUNTER: Initial ACUITY: 2 days PAIN SCALE: 10/10 LOCATION: Right neck TECHNIQUE: Volumetric scanning of the cervical spine was performed. Multiplanar reconstructions in the sagittal, coronal and oblique axial planes were performed. Using automated exposure control and adjustment o f the mA and/or kV according to patient size, radiation dose was kept as low as reasonably achievable to obtain optimal diagnostic quality images. DICOM format image data is available electronically f or review and comparison. FINDINGS: There is no prevertebral soft tissue swelling or compression deformity. The odontoid process is intac t. Multilevel osteophytosis is seen greatest at C5 and C6. There is mild disc space narrowing at C5-6 and C6-7. Moderate multilevel facet hypertrophic changes are noted. 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 CONCLUSION: Degenerative changes are noted without fracture or listhesis. Left thyroid enlargement with mass effe ct on the trachea. Evgeny Castrejon MD on August 13, 2017 at 2:53 Board Certified Radiologist. This report was verified electronically.
[2017-08-13 03:00] VITALS: BP 105/52; PULSE 80; RESP 16; O2SAT 93
--- NOTE | 2017-08-13 03:18 | PD ---
HPI Chief Complaint: Musculoskeletal Complaint Time Seen by Provider: 23:38 Travel History International Travel<30 days: No Contact w/Intl Traveler<30days: No Traveled to known affect area: No History of Present Illness HPI 82-year-old female presents to the emergency department by private transportation in the care of her significant other for evaluation of 2 days of neck pain. Pain has been intermittent. Patient states pain originated on when she awakened and felt as if she had slept wrong with stiffness in her neck. Patient took medication throughout the day symptoms seem to improve. Patient states on Tuesday awakened fine without any pain and then does not recall a specific movement or activity that would've triggered her neck pain again but started noticing soreness and then increasing pain. This evening she has severe pain again in her neck with palpating her back and upper neck and moving her upper extremities. Patient states she has chronic pain in her neck which affects her upper extremities. Patient states she's been very cautious about moving her arms because 3 weeks ago she underwent pacemaker defibrillator insertion. Patient's had no issues with the pacemaker has been working well and has had no defibrillations. Patient states insertion site has remained clean and dry there is been no redness no drainage no swelling no tenderness she 's had no fever or chills. Patient denies any recent febrile illness. Patient has had no headache but has noted some posterior head pain since the pain has developed in her neck. Patient's had chronic sinus issues that frequently flare but recently completed a course of antibiotic post pacemaker procedure and has not had any recent increased sinus issues but they are still present patient has had some left ear pain as severe dental disease has not had a cough has not had shortness of breath has not had pleuritic chest pain has not had chest pain denies nausea vomiting or diarrhea denies abdominal pain denies flank pain denies dysuria frequency urgency or hematuria denies skin rash or joint pain or swelling. Patient states that Tylenol did not provide enough pain relief so presents now for further evaluation. Patient denies any upper extremity or lower extremity numbness tingling or weakness. Patient also does not have any lower extremity numbness tingling or weakness or swelling or pain. Patient did recently travel to [place] and [facility] and was having neck pain while she was out of town and when she contacted her disorder managing physician she was told that they could not prescribe her anything for her pain while out of state. [facility] Past Medical History Narrative Medical Anemia atrial fibrillation thalassemia CHF diabetes diminished hearing diverticulitis hernia hypertension greater cardiac ablation pacemaker defibrillator cardiomyopathy cholecystectomy no tobacco use no alcohol use no substance use nursing notes. Hx Anticoagulant Therapy: Yes Arthritis: Yes Asthma: No Atrial Fibrillation: Yes Autoimmune Disease: No Blood Disorders: Yes (THALASEMIA) Heart Rhythm Problems: Yes ( AFIB) Cancer: No Cardiovascular Problems: Yes High Cholesterol: No Chest Pain: No Congestive Heart Failure: Yes COPD: No Cerebrovascular Accident: No Diabetes: Yes (CONTOLLED WITH FOOD ) Patient Takes Glucophage: No Diminished Hearing: Yes (HEARING AID) Diverticulitis: Yes Endocrine: Yes Gastrointestinal Disorders: No GERD: No Glaucoma: No Genitourinary: Yes Hepatitis: No Hiatal Hernia: Yes Hypertension: Yes Immune Disorder: No Implanted Vascular Access Dvce: Yes Kidney Stones: No Musculoskeletal: Yes Neurologic: Yes Psychiatric: No Reproductive: No Respiratory: No Integumentary: No Immunizations Current: Yes Migraines: No Renal Failure: No Seizures: No Sickle Cell Disease: No Sleep Apnea: No Thyroid Disease: Yes (goiter) Ulcer: No Influenza Vaccination: No ?: Not Menopausal: Yes : 7 Para: 4 Miscarriage: 3 Tubal Ligation: Yes Past Surgical History Abdominal Surgery: Yes (CHOLECTOMY ) AICD: No Appendectomy: No Arteriovenous Shunt: No Cardiac Surgery: Yes (Ablation/Pacemaker) Cholecystectomy: Yes Ear Surgery: No Endocrine Surgery: No Eye Surgery: Yes (IMPLANT B/L EYE) Genitourinary Surgery: No Gynecologic Surgery: Yes (TUBAL; HYSTERECTOMY) Hysterectomy: Yes (Partial) Insulin Pump: No Joint Replacement: No Neurologic Surgery: No Oral Surgery: Yes (TONSILLECTOMY, IMPLANTS ) Pacemaker: Yes (IMPLANTED 2012) Thoracic Surgery: No Tonsillectomy: Yes Other Surgery: Yes Social History Alcohol Use: No (PT DENIES) Tobacco Use: No Substance Use: No Allergies-Medications (Allergen,Severity, Reaction): Coded Allergies: tetanus toxoid, adsorbed (Unverified Allergy, Severe, 07/20/17) FD and C green no.3 (Unverified Allergy, Intermediate, RASH, 07/20/17) FD and C green no.32 (Unverified Allergy, Intermediate, RASH, 07/20/17) FD and C green no.5 (Unverified Allergy, Intermediate, RASH, 07/20/17) FD and C green no.6 (Unverified Allergy, Intermediate, RASH, 07/20/17) Iodinated Contrast- Oral and IV Dye (Unverified Allergy, Intermediate, Hives, 07/20/17) Uncoded Allergies: COAST SOAP (Allergy, Intermediate, RASH, 02/07/10) Reported Meds & Prescriptions Reported Meds & Active Scripts Active Reported Carvedilol 6.25 Mg Tab 6.25 Mg PO BID Vitamin D3 (Cholecalciferol) 5,000 Unit Cap 5,000 Units PO DAILY [calcium ] 1 Tab PO DAILY Vitamin E 100 Unit Tab 100 Units PO DAILY Multi-Vitamin Daily (Multiple Vitamin) 1 Tab Tab 1 Tab PO DAILY Lovaza (Ivriy-4-Cdpx Ethyl Esters) 1 Gm Cap 1 Gm PO DAILY Coumadin (Warfarin) 2.5 Mg Tab 2.5 Mg PO SUTUWEFRSA Take 1 tablet (2.5mg) on Tuesday,Tuesday,Tuesday,Tuesday and Tuesday Potassium Chloride ER (Potassium Chloride) 20 Meq Tab 20 Meq PO DAILY Lasix (Furosemide) 40 Mg Tab 40 Mg PO DAILY Folic Acid 800 Mcg Tab 800 Mcg PO HS Entresto (Sacubitril-Valsartan) 24-26 Mg Tab 1 Tab PO BID Review of Systems Except as stated in HPI: all other systems reviewed are Neg General / Constitutional: No: Fever, Chills HENT: Positive: Congestion (chronic sinus congestion polyps and sinusitis), Neck Stiffness, Neck Pain, Earache, No: Headaches, Sore Throat, Rhinorrhea Cardiovascular: No: Chest Pain or Discomfort, Palpitations, Diaphoresis, Syncope, Edema Respiratory: No: Cough, Shortness of Breath, Wheezing Gastrointestinal: No: Nausea, Vomiting, Diarrhea, Abdominal Pain Genitourinary: No: Frequency, Dysuria Musculoskeletal: No: Myalgias, Arthralgias Skin: Positive Other (pacemker site no redness no drainage nontender), No Rash , No Itching, No Hives Neurologic: No: Weakness, Dizziness, Syncope Psychiatric: No: Anxiety Hematologic/Lymphatic: No: Easy Bruising Physical Exam Narrative GENERAL: Older developed well-nourished elderly female in no acute distress no respiratory distress SKIN: Warm and dry. HEAD: Normocephalic. EYES: No scleral icterus. No injection or drainage. NECK: Supple, trachea midline. No JVD or lymphadenopathy. Pain on lateral rotation of the neck and with palpation and palpation of the trapezius musculature. CARDIOVASCULAR: Regular rate and rhythm without murmurs, gallops, or rubs. Chest wall: Attention left anterior chest wall incision site from pacemaker placement well healing, no redness no induration no increased warmth no tenderness to palpation no purulent drainage. RESPIRATORY: Breath sounds equal bilaterally. No accessory muscle use. GASTROINTESTINAL: Abdomen soft, non-tender, nondistended. MUSCULOSKELETAL: No cyanosis, or edema. BACK: Nontender without obvious deformity. No CVA tenderness. Data Data Last Documented VS Vital Signs Date Time Temp Pulse Resp B/P (MAP) Pulse Ox O2 Delivery O2 Flow Rate FiO2 08/13/17 03:00 80 16 105/52 (69) 93 Room Air 08/13/17 01:30 98.5 Orders Orders Complete Blood Count With Diff (08/12/17 23:42) Basic Metabolic Panel (Bmp) (08/12/17 23:42) Blood Culture (08/12/17 23:42) Lactic Acid (08/12/17 23:42) Chest, Single Ap (08/12/17 ) Ct Brain W/O Iv Contrast(Rout) (08/12/17 ) Ct Cerv Spine W/O Contrast (08/12/17 ) Prothrombin Time / Inr (Pt) (08/12/17 23:42) Hydromorphone Pf Inj (Dilaudid Pf Inj) (08/12/17 23:45) Ondansetron Inj (Zofran Inj) (08/12/17 23:45) Acetaminophen (Tylenol) (08/12/17 23:45) Urinalysis - C+S If Indicated (08/13/17 01:27) Sodium Chlorid 0.9% 500 Ml Inj (Ns 500 M (08/13/17 01:45) Ketorolac Inj (Toradol Inj) (08/13/17 04:00) Urine Culture (08/13/17 03:42) Ceftriaxone Inj (Rocephin Inj) (08/13/17 04:00) Ed Discharge Order (08/13/17 04:03) Labs Laboratory Tests Test 08/13/17 00:45 08/13/17 03:42 White Blood Count 12.6 TH/MM3 Red Blood Count 5.19 MIL/MM3 Hemoglobin 10.2 GM/DL Hematocrit 32.1 % Mean Corpuscular Volume 61.9 FL Mean Corpuscular Hemoglobin 19.7 PG Mean Corpuscular Hemoglobin Concent 31.9 % Red Cell Distribution Width 14.7 % Platelet Count 267 TH/MM3 Mean Platelet Volume 8.4 FL Neutrophils (%) (Auto) 72.9 % Lymphocytes (%) (Auto) 14.8 % Monocytes (%) (Auto) 9.1 % Eosinophils (%) (Auto) 2.9 % Basophils (%) (Auto) 0.3 % Neutrophils # (Auto) 9.1 TH/MM3 Lymphocytes # (Auto) 1.9 TH/MM3 Monocytes # (Auto) 1.2 TH/MM3 Eosinophils # (Auto) 0.4 TH/MM3 Basophils # (Auto) 0.0 TH/MM3 CBC Comment AUTO DIFF Differential Comment AUTO DIFF CONFIRMED Platelet Estimate NORMAL Platelet Morphology Comment NORMAL Ovalocytes 1+ Hematology Comments Prothrombin Time 11.2 SEC Prothromb Time International Ratio 1.1 RATIO Blood Urea Nitrogen 33 MG/DL Creatinine 1.30 MG/DL Random Glucose 106 MG/DL Calcium Level 8.4 MG/DL Sodium Level 135 MEQ/L Potassium Level 4.0 MEQ/L Chloride Level 102 MEQ/L Carbon Dioxide Level 22.7 MEQ/L Anion Gap 10 MEQ/L Estimat Glomerular Filtration Rate 39 ML/MIN Lactic Acid Level 1.8 mmol/L Urine Color STRAW Urine Turbidity CLEAR Urine pH 5.0 Urine Specific [place] 1.007 Urine Protein NEG mg/dL Urine Glucose (UA) NEG mg/dL Urine Ketones NEG mg/dL Urine Occult Blood NEG Urine Nitrite POS Urine Bilirubin NEG Urine Leukocyte Esterase SMALL Urine RBC 0-2 /hpf Urine WBC 15-19 /hpf Urine WBC Clumps FEW Urine Squamous Epithelial Cells 0-5 /hpf Urine Bacteria MOD /hpf Microscopic Urinalysis Comment CULTURE INDICATED MDM Medical Decision Making Medical Screen Exam Complete: Yes Emergency Medical Condition: Yes Medical Record Reviewed: Yes Interpretation(s) Urinalysis: Positive for nitrites positive leukocyte Estrace positive for white blood cells and comfortable blood cells positive for bacteria; culture indicated Last Impressions Head CT 08/12/17 0000 Signed Impressions: Service Date/Time: Sunday, August 13, 2017 02:28 - CONCLUSION: No acute disease. Evgeny Castrejon MD Chest X-Ray 12/8/17 0000 Signed Impressions: Service Date/Time: Sunday, August 13, 2017 00:13 - CONCLUSION: No acute disease. Evgeny Castrejon MD Cervical Spine CT 08/12/17 0000 Signed Impressions: Service Date/Time: Sunday, August 13, 2017 02:28 - CONCLUSION: Degenerative changes are noted without fracture or listhesis. Left thyroid enlargement with mass effect on the trachea. Evgeny Castrejon MD CBC & BMP Diagram 08/13/17 00:45 Calcium Level 8.4 L Vital Signs Date Time Temp Pulse Resp B/P (MAP) Pulse Ox O2 Delivery O2 Flow Rate FiO2 08/13/17 01:30 80 18 114/57 (76) 95 Room Air 08/13/17 01:21 18 08/13/17 00:50 18 08/13/17 00:05 100.2 80 18 131/76 (94) 97 Room Air 08/12/17 23:21 18 08/12/17 23:11 100.2 80 18 125/59 (81) 97 08/12/17 22:55 100.2 80 18 125/59 (81) 97 Lactic acid: 1.8, not elevated Differential Diagnosis Cervical strain degenerative disc disease HNP radiculopathy; no history or findings for vascular injury dissection or meningitis Narrative Course IV access obtained specimens collected and sent for resulting patient given one- time dose of Dilaudid 0.5 mg IV and Zofran 4 mg IV Patient was increased creatinine 1.3 given a 500 cc bolus of normal saline Patient waiting for CT imaging to be performed At 3 AM patient reports that she has been having issues chronically with her sinuses and her dentition with multiple dental caries and gingival inflammation. Patient otherwise denies headache visual disturbance sore throat earache cough congestion chest pain nausea vomiting abdominal pain diarrhea dysuria frequency urgency flank pain joint pain or swelling or skin rash. As noted before she has had no redness induration tenderness swelling or drainage at her pacemaker insertion site. An at home has had no fever or temperature elevation. Patient denies having any fever or chills. Patient has not been on antibiotic for 2 weeks. She reports neck pain is markedly improved. Imaging studies show chronic changes no acute abnormality Patient ambulatory to to collect urine specimen without incident UA is abnormal consistent was urinary tract infection face patient given first dose of antibiotic in the emergency department Rocephin 1 g ivpb patient informed inr:1, subtherapeutic ---reports she is not taking warfarin/ coumadin Diagnosis Primary Impression: Cervical disc disease Additional Impression: UTI (urinary tract infection) Referrals: Primary Care Physician 2 days Patient Instructions: General Instructions Additional Instructions: Complete course of antibiotic as prescribed Follow-up with your primary care provider Apply moist heat intermittently to neck and upper back area as needed for symptom relief Continue chronic medications as currently prescribed Take acetaminophen/Tylenol every 4 hours as needed for fever 100.4F or greater Take pain medication as prescribed as needed for neck pain be aware that this may impair judgment and increased risk for fall and cause constipation Med/Other Pt SpecificInfo: Prescription(s) given Scripts Oxycodone-Acetaminophen (Percocet) 5-325 mg Tab 0.5-1 TAB PO Q6H Y for PAIN, #7 TAB 0 Refills Prov: Bhavna Burgess MD 08/13/17 Ciprofloxacin (Cipro) 500 Mg Tab 500 MG PO BID for Infection for 7 Days, #14 TAB 0 Refills Prov: Bhavna Burgess MD 08/13/17 Disposition: DISCHARGE HOME Condition: Stable (while) Bhavna Burgess MD Aug 13, 2017 03:18
[2017-08-13 03:49] LABS: BLOOD, URINE NEG (NEG); GLUCOSE,URINE NEG (NEG); KETONE, URINE NEG (NEG); NITRITE,URINE POS (NEG)
[2017-08-13 03:57] LABS: BACTERIA, URINE MOD /hpf; COMMENT (UR) CULTURE INDICATED; CULTURE IF INDICATED CULTURE INDICATED; RBC, URINE 0-2 /hpf (0-3); SQUAMOUS EPITHELIAL CELL URINE 0-5 /hpf (0-5); URINE COLOR STRAW (YELLW/STRAW); WBC, URINE 15-19 /hpf (0-5)
[2017-08-13] MEDS ORDERED: cefTRIAXone INJ 1,000 MG in SODIUM CHLORIDE 0.9% INJ 100 ML IV ONE (04:00)
[2017-08-13] MEDS ORDERED: KETOROLAC TROMETHAMINE 30 MG/ML (IVP) VIAL IV PUSH ONE (04:00)
[2017-08-13] MEDS ORDERED: CIPR-9 PO (04:09)
[2017-08-13] MEDS ORDERED: PERC5TAB12 PO (04:11)
[2017-08-13 04:12] VITALS: BP 100/60; PULSE 80; RESP 18; TEMP 97.9; O2SAT 98
[2017-08-13 04:56] VITALS: BP 102/59
[2017-08-13 05:01] VITALS: RESP 18
== END 2017-08-13 05:34 | disposition home or self-care (01) ==
LOC: PHED 22:27
DX: M50.922 Unspecified cervical disc disorder at C5-C6 level (principal); N39.0 Urinary tract infection, site not specified; B96.20 Unspecified Escherichia coli [E. coli] as the cause of diseases classified elsewhere; R78.81 Bacteremia; B95.4 Other streptococcus as the cause of diseases classified elsewhere; I48.91 Unspecified atrial fibrillation; I11.0 Hypertensive heart disease with heart failure; I50.9 Heart failure, unspecified; E11.9 Type 2 diabetes mellitus without complications; Z16.11 Resistance to penicillins; Z16.23 Resistance to quinolones and fluoroquinolones; Z16.29 Resistance to other single specified antibiotic
CPT/HCPCS: 70450; 71010; 72125; 80048; 81001; 83605; 85025; 85610; 87040; 87077; 87086; 87186; 87205; 96361; 96365; 96375; 99285; J0696; J1170; J1885; J2405; J7040